=== PATIENT | male | born 1965 | race Caucasian/White ===

== ENCOUNTER → 2018-02-02 14:17 | Outpatient (CLI) | payer SELFPAY ==
[2018-02-02 15:47] LABS: AST(SGOT) 20 U/L (15-37); Alanine Aminotransfer ALT/SGPT 51 U/L (16-61); Albumin, Serum 3.8 g/dL (3.2-5.0); Alkaline Phosphatase 101 U/L (45-117); Bilirubin, Direct 0.11 mg/dL (0.00-0.30); EST Glomerular Filtration Rate 52 mL/min (>60); Est Glom Filt Rate - Afr Amer 63 mL/min (>60); Globulin 4.1 g/dL (2.2-4.2); Protein, Total 7.9 g/dL (6.4-8.2)
[2018-02-02 15:49] LABS: Vitamin D,25 Hydroxy 19.3 ng/mL (29.95-100.01)
[2018-02-02 16:36] LABS: PTHIN 58.7 pg/mL (18.4-80.1)
[2018-02-02 16:38] LABS: Erythrocyte Sedimentation Rate 34 mm/hr (0-20)
[2018-02-05 16:50] LABS: CCP IgG Antibodies 5 units (0-19)
== END ==
PROVIDERS: Family Provider Family Medicine; PCP Family Medicine
DX: M35.3 Polymyalgia rheumatica (principal); R70.0 Elevated erythrocyte sedimentation rate; R79.82 Elevated C-reactive protein (CRP); M85.80 Other specified disorders of bone density and structure, unspecified site; Z79.899 Other long term (current) drug therapy
CPT/HCPCS: 36415; 80076; 82306; 82310; 82565; 83970; 85652; 86140; 86200

== ENCOUNTER → 2018-02-16 12:13 | Outpatient (CLI) | payer SELFPAY ==
[2018-02-16 14:25] LABS: BUN 27 mg/dL (7-18); Creatinine, Serum 1.59 mg/dL (0.70-1.30); EST Glomerular Filtration Rate 48 mL/min (>60); Est Glom Filt Rate - Afr Amer 59 mL/min (>60)
[2018-02-16 14:31] LABS: PTHIN 41.6 pg/mL (18.4-80.1)
== END ==
PROVIDERS: Family Provider Family Medicine; PCP Family Medicine
DX: R94.4 Abnormal results of kidney function studies (principal); M85.80 Other specified disorders of bone density and structure, unspecified site
CPT/HCPCS: 36415; 82310; 82565; 83970; 84520

== ENCOUNTER 2018-02-23 16:08 | Inpatient (IN) | payer SELFPAY ==
[2018-02-23] VITALS (11 sets, daily range): BP systolic 114–155; BP diastolic 60–97; PULSE 63–87; RESP 16–21; TEMP 36.4–37.1; O2SAT 96–100; BMI 29.3; BMI 29.6
[2018-02-23] MEDS: 0.9% Normal Saline 1,000 ML 1000 ML IV (17:05)
[2018-02-23 17:15] LABS: Bacteria 0 SEEN /hpf (None Seen); Mucous, Urine 0 SEEN /hpf (<or=2+); Red Blood Cells-Urine 0 SEEN /hpf (0-5); Squamous Epithelial Cells - UA 0 SEEN /hpf (0-5); White Blood Cells 0 SEEN /hpf (0-5)
[2018-02-23 17:21] LABS: Absolute Neutrophil Count 4.7 X10^3/uL (2.0-7.7); Basophil# 0.02 X10^3/uL; Basophil% 0.3 % (0-1); Eosinophil# 0.03 X10^3/uL; Eosinophils% 0.5 % (0-5); Hematocrit 42.1 % (40-54); Hemoglobin 14.9 g/dl (13.0-16.5); Lymphocyte % 22.7 % (19-41); Mean Corp Hgb Conc 35.4 g/gl (32-36); Mean Corpuscular Hgb 27.2 pg (27.0-32.0); Monocyte# 0.32 X10^3/uL; Monocyte% 4.8 % (0-10); Neutrophil # 4.72 X10^3/uL (2.7-7.7); Neutrophil % 71.4 % (47-70); Platelet Count 283 K/mm3 (150-450); RBC Distribution Width CV 13.7 % (11.6-14.6); RBC Distribution Width SD 38.5 fl (35.1-43.9); Red Blood Count 5.47 M/mm3 (4.6-6.2); White Blood Count 6.6 K/mm3 (4.4-11.0)
[2018-02-23 17:24] LABS: POSITIVE COUNT NO; POSITIVE DIFFERENTIAL NO; POSITIVE MORPHOLOGY NO
[2018-02-23 17:33] LABS: Color, Urine Yellow (Yellow); Glucose, Dipstick 1000 mg/dl (Normal); Leukocyte Esterase-Dipstick Negative /ul (Negative); Nitrite-Dipstick Negative (Negative); Occult Blood-Urine 25 /ul (Negative); Protein-Dipstick 15 mg/dl (Negative); Specific Gravity, Urine 1.025 (1.002-1.030); Urine Bilirubin Dipstick Negative (Negative); Urine Clarity Clear (Clear); Urine Urobilinogen Normal (Normal)
[2018-02-23 17:34] LABS: Anion Gap 17 (5-15); BUN 16 mg/dL (7-18); Calcium,Total 8.5 mg/dL (8.5-10.1); Chloride 97 mmol/L (98-107); Creatinine, Serum 0.84 mg/dL (0.70-1.30); EST Glomerular Filtration Rate 101 mL/min (>60); Est Glom Filt Rate - Afr Amer 122 mL/min (>60); Estimated Creatinine Clearance 93.99 ml/min; Glucose 339 mg/dL (74-106); Potassium 3.7 mmol/L (3.5-5.1); Sodium Level 130 mmol/L (136-145)
--- NOTE | 2018-02-23 17:34 | ED.VISSUMM ---
- ER Visit Summary Date of Service: 02/23/18 Chief Complaint: Elevated blood sugar History of Present Illness: The patient is a 52 M presenting with elevated blood sugar. Patient states that he has been testing his blood sugar with his friend's machine over the past several days. He states is been up to 500. He complains of polyuria and polydipsia. He states he has been losing weight over the past 6 weeks he has lost 26 pounds. He saw his primary care physician today who ordered outpatient lab work. He was then later called and advised to come to the ED for concern of diabetes. He has a history of GERD and polymyalgia rheumatica. He is on prednisone chronically. He has had nausea with no vomiting. He denies other complaints. Physical Examination: Vitals are stable. Patient is afebrile. Alert no acute distress. HEENT exam is unremarkable. Neck is supple. Lungs are clear and equal bilaterally. Heart is regular rate and rhythm. Abdomen is soft nontender nondistended. Extremities are unremarkable. Skin is warm and dry. No focal neurologic deficit. Remainder of exam is unremarkable. Emergency Department Course and Treatment: Patient is given IV fluids. EKG is sinus rate is 79. CBC unremarkable. Chemistries show sodium 130, CO2 16, anion gap 17, glucose 339. Urinalysis shows ketones and glucose. Serum ketones are small. Patient was started on insulin drip. Discussed with Dr. Raymond for admission. Disposition: Admission Impression: Diabetic ketoacidosis This note was generated with [employer] dictation software. It may contain incorrect words, spelling, and punctuation that were not noted in review of the chart prior to signing ED Disposition - Plan for ED Patient: Chief Complaint: Hyperglycemia Referrals: Hector Luciano MD [Primary Care Provider] -
--- NOTE | 2018-02-23 17:35 | NURSING ---
PER LAB URINE KETONES 150.
[2018-02-23 17:36] LABS: Ketone-Dipstick 150 mg/dl (Negative)
--- NOTE | 2018-02-23 18:45 | PCM.HP.STD ---
Problem List (1) DKA (diabetic ketoacidoses) Status: Acute Qualifiers: Diabetes mellitus type: type 2 Diabetes mellitus complication detail: without coma Qualified Code(s): E11.10 - Type 2 diabetes mellitus with ketoacidosis without coma (2) GERD (gastroesophageal reflux disease) Status: Acute Qualifiers: Esophagitis presence: esophagitis presence not specified Qualified Code(s): K21.9 - Gastro-esophageal reflux disease without esophagitis (3) PMR (polymyalgia rheumatica) Status: Chronic History of Present Illness Date of Admission: 02/23/18 Chief Complaint: Generalised weakness, dizziness, blurred vision, polydipsia, polyuria - >3 weeks The patient is a 52 year old M with a recent diagnosis of polymyalgia rheumatica, started on prednisone, who comes in with complaints of fatigue, polydipsia, polyuria, blurred vision as well as dizziness ongoing for more than 3 weeks. Patient had noticed his symptoms getting worse 3 days ago, I tried calling to the primary care office but they were close. He brought his friend's glucometer and check his blood sugar and was reportedly 499. He tried to control his sugars diet and repeat checking has shown that sugars had gone down to about 200s. He called in this morning to see his primary care doctor and blood sugar was reportedly more than 320, his HbA1c was also more than 15. He was asked to come to the ED. In the ED, his temperature 97.6, blood pressure was 155/95, heart rate 77, SPO2 is 96% on room air. His admitting blood work was remarkable for sodium of 130, chloride 97, potassium 3.7, bicarbonate 16, anion gap of 17, BUN 16, creatinine 0.84. His UA showed clear urine, glucose 1000, with ketones. Past Medical History Past Medical History (Chronic Problems): Chronic Problems Hypertension (Chronic) PMR (polymyalgia rheumatica) (Chronic) Allergies No Known Allergies Allergy (Verified 02/23/18 16:11) Home Medications: Ambulatory Orders Medication Instructions Recorded Cholecalciferol (Vitamin D3) 50,000 unit PO ANDRADE 02/23/18 [Vitamin D] Omeprazole Magnesium [Prilosec Otc] 10 mg PO DAILY 02/23/18 Paroxetine HCl [Paxil] 30 mg PO DAILY 02/23/18 Prednisone 10 mg PO DAILY 02/23/18 Surgical History: - - knee surgery years ago Psychiatric History: No pertinent psych hx Lives: Spouse/ Significant Other Smoking Status: Never smoker Tobacco Use: Non-smoker Alcohol: None Drugs: None - *Family History Paternal History Items: No pertinent history Maternal History Items: No pertinent history Review of Systems Constitutional: Denies: Anorexia, Chills, Fever, Malaise, Weakness, Weight Change Eyes: Denies: Blurred vision, Cataracts, Conjunctivae Inflammation, Pain, Redness, Vision Change HEENT: Denies: Difficulty Hearing, Difficulty Swallowing, Head Aches, Hearing Changes, Sinus Congestion, Sinus Drainage Cardiovascular: Denies: Chest Pain, Claudication, Orthopnea, Palpitations, Paroxysmal Noc. Dyspnea Respiratory: Denies: Cough, Shortness of Breath, Shortness of breath at rest, Shortness of breath upon exertion, Sputum production Gastrointestinal: Denies: Abdominal Pain, Constipation, Hematemesis, Hematochezia, Nausea, Vomiting Genitourinary: Denies: Dysuria, Frequency, Incontinence Musculoskeletal: Denies: Joint Pain, Joint stiffness, Joint swelling, Joint Tenderness Skin: Denies: Dryness, Pruritis, Rash, Wounds Neurological: Denies: Difficulty swallowing, Focal weakness, Numbness, Tingling Psychiatric: Denies: Anxiety, Depression, Homicidal Ideations, Suicidal Ideations Hematologic/ Lymphatic: Denies: Easy Bruising, Easy Bleeding VTE Information - Inpt Only VTE Present on Admission: No VTE Pharm Prophylaxis ordered?: Yes Patient Problems: Active and Suspected Problems DKA (diabetic ketoacidoses) (Acute) GERD (gastroesophageal reflux disease) (Acute) - Physical Exam General: Alert, Oriented x3, Cooperative, No apparent distress HEENT: Atraumatic, PERRLA, EOMI, Normocephalic Oral: Moist Mucosa Neck: Supple, No JVD, Negative Carotid Bruits Lungs: Clear to auscultation, Normal air movement Cardiovascular: Regular rate, Regular Rhythm, Normal S1, Normal S2, No murmurs Abdomen: Bowel Sounds Present, Soft, Non Tender Extremities: No edema Skin: No rashes, No breakdown Musculoskeletal: No Tenderness to Palpation of Joints or Extremities Lymphatic: No Cervical, Supraclavicular, or Inguinal Adenopathy Neurological: Cranial nerves II-XII grossly intact Psych/Mental Status: Normal Affect, Appropriate Vital Signs Temp Pulse Resp BP Pulse Ox 97.6 F L 67 18 137/88 H 99 02/23/18 16:09 02/23/18 18:24 02/23/18 18:24 02/23/18 18:24 02/23/18 18:24 Oxygen Delivery Method Room Air Weight: 85 kg Body Mass Index (BMI) 29.3 Laboratory Tests Past 24 Hrs 02/23/18 02/23/18 02/23/18 16:54 16:54 16:54 WBC 6.6 RBC 5.47 Hgb 14.9 Hct 42.1 MCV 77.0 L MCH 27.2 MCHC 35.4 RDW 13.7 RDW Differential 38.5 Plt Count 283 MPV 9.0 Immature Gran % (Auto) 0.300 Neut % (Auto) 71.4 H Lymph % (Auto) 22.7 [place] % (Auto) 4.8 Eos % (Auto) 0.5 Baso % (Auto) 0.3 Absolute Neuts (auto) 4.7 Absolute Lymphs (auto) 1.50 Total Counted Not Reportable Sodium 130 L Potassium 3.7 Chloride 97 L Carbon Dioxide 16.0 L Anion Gap 17 H BUN 16 Creatinine 0.84 Estim Creat Clear Calc 93.99 Est GFR (MDRD) Af Amer 122 Est GFR (MDRD) Non-Af 101 BUN/Creatinine Ratio 19.0 Glucose 339 H Calcium 8.5 Urine Color Urine Clarity Urine pH Ur Specific [place] Urine Protein Urine Glucose (UA) Urine Ketones Urine Occult Blood Urine Nitrite Urine Bilirubin Urine Urobilinogen Ur Leukocyte Esterase Urine RBC Urine WBC Ur Squamous Epith Cells Urine Bacteria Urine Mucus Acetone Level SMALL H 02/23/18 17:08 WBC RBC Hgb Hct MCV MCH MCHC RDW RDW Differential Plt Count MPV Immature Gran % (Auto) Neut % (Auto) Lymph % (Auto) [place] % (Auto) Eos % (Auto) Baso % (Auto) Absolute Neuts (auto) Absolute Lymphs (auto) Total Counted Sodium Potassium Chloride Carbon Dioxide Anion Gap BUN Creatinine Estim Creat Clear Calc Est GFR (MDRD) Af Amer Est GFR (MDRD) Non-Af BUN/Creatinine Ratio Glucose Calcium Urine Color Yellow Urine Clarity Clear Urine pH 5.0 Ur Specific [place] 1.025 Urine Protein 15 H Urine Glucose (UA) 1000 H Urine Ketones 150 H Urine Occult Blood 25 H Urine Nitrite Negative Urine Bilirubin Negative Urine Urobilinogen Normal Ur Leukocyte Esterase Negative Urine RBC 0 SEEN Urine WBC 0 SEEN Ur Squamous Epith Cells 0 SEEN Urine Bacteria 0 SEEN Urine Mucus 0 SEEN Acetone Level Assessment/Plan All Active Problems DKA (diabetic ketoacidoses) (Acute) GERD (gastroesophageal reflux disease) (Acute) 52 year old M with a recent diagnosis of polymyalgia rheumatica, started on prednisone, who comes in with complaints of fatigue, polydipsia, polyuria, blurred vision as well as dizziness ongoing for more than 3 weeks. 1. Acute DKA, newly diagnosed diabetic, HbA1c reportedly 15 and the outside facility, patient is on steroid Plan: Admit to the ICU, managed on insulin drip per protocol, monitor for electrolyte imbalances, IV fluids 2. Newly diagnosed DM, will consult dietitian, will check HbA1c, patient will most likely need insulin on discharge 3. Polymyalgia rheumatica, pain is fairly controlled, will continue steroids. 4. GERD, on PPI 5. Anxiety/depression, on Paxil 6. DVT PPx- Heparin SC Code Visit Inpatient E&M: 26590 Init Hosp L3
[2018-02-23] MEDS: Dext 5%-0.45% NS 1,000 ML 150 ML IV (20:53)
[2018-02-23 21:10] LABS: Bedside Glucose 246 mg/dL (70-110)
[2018-02-23 21:21] LABS: Hemoglobin A1c 13.6 % (4.2-6.3)
[2018-02-23 21:32] LABS: Anion Gap 14 (5-15); BUN 13 mg/dL (7-18); BUN/Creat Ratio 16.9 RATIO (10-20); Chloride 100 mmol/L (98-107); Creatinine, Serum 0.77 mg/dL (0.70-1.30); EST Glomerular Filtration Rate 112 mL/min (>60); Est Glom Filt Rate - Afr Amer 135 mL/min (>60); Estimated Creatinine Clearance 102.54 ml/min; Glucose 254 mg/dL (74-106); Potassium 3.8 mmol/L (3.5-5.1); Sodium Level 132 mmol/L (136-145)
[2018-02-23] MEDS: Heparin Injection (Vial) 5,000 UNIT/ML VIAL 5000 UNIT SC (21:43)
[2018-02-23 21:51] LABS: Bedside Glucose 266 mg/dL (70-110)
[2018-02-23 23:06] LABS: Bedside Glucose 248 mg/dL (70-110)
[2018-02-24] VITALS (14 sets, daily range): BP systolic 107–139; BP diastolic 59–86; PULSE 54–76; RESP 12–22; TEMP 36.2–37; O2SAT 90–100
[2018-02-24 00:10] LABS: Bedside Glucose 237 mg/dL (70-110)
[2018-02-24 00:59] LABS: Anion Gap 11 (5-15); BUN 10 mg/dL (7-18); BUN/Creat Ratio 14.6 RATIO (10-20); Calcium,Total 7.9 mg/dL (8.5-10.1); Chloride 105 mmol/L (98-107); Creatinine, Serum 0.68 mg/dL (0.70-1.30); EST Glomerular Filtration Rate 128 mL/min (>60); Est Glom Filt Rate - Afr Amer 155 mL/min (>60); Estimated Creatinine Clearance 116.11 ml/min; Glucose 214 mg/dL (74-106); Potassium 3.2 mmol/L (3.5-5.1); Sodium Level 135 mmol/L (136-145)
[2018-02-24 02:06] LABS: Bedside Glucose 179 mg/dL (70-110)
[2018-02-24] MEDS: Dext 5%-0.45% NS 1,000 ML 150 ML IV (03:05)
[2018-02-24 03:11] LABS: Bedside Glucose 159 mg/dL (70-110)
[2018-02-24 04:21] LABS: Bedside Glucose 154 mg/dL (70-110)
[2018-02-24 04:38] LABS: Anion Gap 11 (5-15); BUN 9 mg/dL (7-18); BUN/Creat Ratio 12.4 RATIO (10-20); Calcium,Total 8.2 mg/dL (8.5-10.1); Chloride 108 mmol/L (98-107); Creatinine, Serum 0.73 mg/dL (0.70-1.30); EST Glomerular Filtration Rate 120 mL/min (>60); Est Glom Filt Rate - Afr Amer 145 mL/min (>60); Estimated Creatinine Clearance 108.15 ml/min; Glucose 145 mg/dL (74-106); Magnesium 2.1 mg/dL (1.6-2.6); Potassium 3.2 mmol/L (3.5-5.1); Sodium Level 141 mmol/L (136-145)
[2018-02-24 04:44] LABS: Absolute Lymphocyte Count 2.28 X10^3/ul (0.83-4.51); Absolute Neutrophil Count 2.1 X10^3/uL (2.0-7.7); Basophil# 0.03 X10^3/uL; Basophil% 0.6 % (0-1); Eosinophil# 0.07 X10^3/uL; Eosinophils% 1.4 % (0-5); Hematocrit 37.8 % (40-54); Hemoglobin 13.5 g/dl (13.0-16.5); Lymphocyte # 2.28 X10^3/ul (4.0); Mean Corp Hgb Conc 35.7 g/gl (32-36); Mean Corpuscular Hgb 27.1 pg (27.0-32.0); Mean Corpuscular Volume 75.9 fL (80-94); Mean Platelet Vol. 8.5 fl (6.2-12.0); Monocyte# 0.34 X10^3/uL; Neutrophil # 2.12 X10^3/uL (2.7-7.7); Neutrophil % 43.8 % (47-70); Platelet Count 223 K/mm3 (150-450); RBC Distribution Width CV 13.9 % (11.6-14.6); Red Blood Count 4.98 M/mm3 (4.6-6.2); White Blood Count 4.9 K/mm3 (4.4-11.0)
[2018-02-24 04:49] LABS: POSITIVE COUNT NO; POSITIVE DIFFERENTIAL NO; POSITIVE MORPHOLOGY NO
[2018-02-24] MEDS: Heparin Injection (Vial) 5,000 UNIT/ML VIAL 5000 UNIT SC ×3 (05:04→21:16)
[2018-02-24 06:11] LABS: Bedside Glucose 146 mg/dL (70-110)
--- NOTE | 2018-02-24 07:44 | PCM.PN.HOSP ---
Patient Problems: Active and Suspected Problems DKA (diabetic ketoacidoses) (Acute) GERD (gastroesophageal reflux disease) (Acute) Subjective: And was seen and examined. Complains of feeling fatigued. Denies any dizziness or shortness of breath or chest pain. Anion gap has been closed ?2. Remains on insulin drip. Vitals/I&O's: Vital Signs Temp Pulse Resp BP Pulse Ox 97.2 F L 57 L 13 139/86 H 100 02/24/18 04:00 02/24/18 07:00 02/24/18 07:00 02/24/18 07:00 02/24/18 07:00 Oxygen Delivery Method Room Air Weight: 87.3 kg Body Mass Index (BMI) 29.6 Finger Stick Blood Glucose 178 Intake and Output for Last 24 Hours 02/22/18 02/23/18 02/24/18 23:59 23:59 23:59 Intake Total 909.8 / 909.8 1074.2 / 1074.2 Output Total 1225 / 1225 700 / 700 Balance -315.2 / -315.2 374.2 / 374.2 General: Alert, Oriented x3, Cooperative, No apparent distress HEENT: Atraumatic, PERRLA, EOMI, Normocephalic Oral: Moist Mucosa Neck: Supple Lungs: Clear to auscultation, Normal air movement Cardiovascular: Regular rate, Regular Rhythm, Normal S1, Normal S2, No murmurs Abdomen: Bowel Sounds Present, Soft, Non Tender Extremities: No edema Skin: No rashes, No breakdown Musculoskeletal: No Tenderness to Palpation of Joints or Extremities Lymphatic: No Cervical, Supraclavicular, or Inguinal Adenopathy Neurological: Cranial nerves II-XII grossly intact, Neuro grossly intact Psych/Mental Status: Normal Affect, Appropriate Laboratory Results 02/23/18 20:24: POC Glucose 246 H 02/23/18 20:40: Hemoglobin A1c 13.6 H 02/23/18 20:40: Sodium 132 L, Potassium 3.8, Chloride 100, Carbon Dioxide 18.0 L, Anion Gap 14, BUN 13, Creatinine 0.77, Estim Creat Clear Calc 102.54, Est GFR (MDRD) Af Amer 135, Est GFR (MDRD) Non-Af 112, BUN/Creatinine Ratio 16.9, Glucose 254 H, Calcium 8.0 L 02/23/18 21:41: POC Glucose 266 H 02/23/18 23:00: POC Glucose 248 H 02/23/18 23:57: POC Glucose 237 H 02/24/18 00:30: Sodium 135 L, Potassium 3.2 L, Chloride 105, Carbon Dioxide 19.0 L, Anion Gap 11, BUN 10, Creatinine 0.68 L, Estim Creat Clear Calc 116.11, Est GFR (MDRD) Af Amer 155, Est GFR (MDRD) Non-Af 128, BUN/Creatinine Ratio 14.6, Glucose 214 H, Calcium 7.9 L 02/24/18 01:59: POC Glucose 179 H 02/24/18 03:02: POC Glucose 159 H 02/24/18 04:12: POC Glucose 154 H 02/24/18 04:20: Sodium 141, Potassium 3.2 L, Chloride 108 H, Carbon Dioxide 22.0, Anion Gap 11, BUN 9, Creatinine 0.73, Estim Creat Clear Calc 108.15, Est GFR (MDRD) Af Amer 145, Est GFR (MDRD) Non-Af 120, BUN/Creatinine Ratio 12.4, Glucose 145 H, Calcium 8.2 L, Magnesium 2.1 02/24/18 04:20: WBC 4.9, RBC 4.98, Hgb 13.5, Hct 37.8 L, MCV 75.9 L, MCH 27.1, MCHC 35.7, RDW 13.9, RDW Differential 38.0, Plt Count 223, MPV 8.5, Immature Gran % (Auto) 0.200, Neut % (Auto) 43.8 L, Lymph % (Auto) 47.0 H, [place] % (Auto) 7.0, Eos % (Auto) 1.4, Baso % (Auto) 0.6, Absolute Neuts (auto) 2.1, Absolute Lymphs (auto) 2.28, Total Counted Not Reportable 02/24/18 06:02: POC Glucose 146 H Current Medications Dextrose (D50w Syringe) 0 gm IV X1 PRN; Protocol PRN Reason: HYPOGLYCEMIA Ergocalciferol (Vitamin D) 50,000 unit PO Mir [facility] Heparin Sodium (Porcine) (Heparin Na) 5,000 unit SC Q8 [facility] Last Admin: 02/24/18 05:04 Dose: 5,000 unit Dextrose/Sodium Chloride () 1,000 mls @ 150 mls/hr IV .[id number] [facility] Last Admin: 02/24/18 03:05 Dose: 150 mls/hr Insulin Human Lispro 100 unit/ (Sodium Chloride) 100 mls @ 8.58 mls/hr IV .[id number] [facility]; 0.1 UNITS/KG/HR PRN Reason: Protocol Last Admin: 02/24/18 03:06 Dose: Not Given Sodium Chloride () 250 mls @ 15 mls/hr IV .[id number] PRN PRN Reason: SALINE FLUSH Potassium Chloride (Kcl 10meq/100ml) 10 meq in 100 mls @ 100 mls/hr IV BOLUS Q1H [facility] Stop: 02/24/18 08:44 Last Admin: 02/24/18 06:23 Dose: 100 mls/hr Nutritional Formula (Lactose Free) (Glucerna Shake) 120 ml PO 4X/DAY [facility] Pantoprazole Sodium (Protonix) 20 mg PO DAILY [facility] Paroxetine HCl (Paxil) 30 mg PO DAILY [facility] Prednisone () 10 mg PO DAILYCM [facility] Sodium Chloride () 5 - 30 ml IV UD PRN PRN Reason: SALINE FLUSH Medical Necessity - Tobacco Use Smoking Status: Never smoker Tobacco Use: Non-smoker Assessment/Plan All Active Problems DKA (diabetic ketoacidoses) (Acute) GERD (gastroesophageal reflux disease) (Acute) 52 year old M with a recent diagnosis of polymyalgia rheumatica, started on prednisone, who comes in with complaints of fatigue, polydipsia, polyuria, blurred vision as well as dizziness ongoing for more than 3 weeks. 1. Acute DKA, newly diagnosed diabetic, HbA1c 13.6, Started on insulin drip, anion gap is closed, will transition to Lantus 10 units daily as well as insulin sliding scale, sled maker referral 2. Newly diagnosed DM, HbA1c 13.6, will be discharged on insulin. 3. Hypokalemia, replaced, recheck BMP in a.m. 4. Polymyalgia rheumatica, pain is fairly controlled, on steroids. 5. GERD, on PPI 6. Anxiety/depression, on Paxil 7. DVT PPx- Heparin SC Code Visit Inpatient E&M: 06395 Subs Hosp L2
[2018-02-24 08:06] LABS: Bedside Glucose 115 mg/dL (70-110)
[2018-02-24] MEDS: Glucerna Shake 120 ML LIQUID PO ×4 (09:03→21:15)
[2018-02-24] MEDS: predniSONE 10 MG Tablet PO (09:04)
[2018-02-24] MEDS: PARoxetine 10 MG Tablet 30 MG PO (09:04)
[2018-02-24] MEDS: Pantoprazole Sodium 20 MG Tablet PO (09:05)
--- NOTE | 2018-02-24 09:43 | CASEMGMT ---
SW spoke with Patient [employer] and patient is over income for any assistance. He is also over income for hospital indigent medication program. RN CM spoke with patient and he feels he will be fine paying for medications. Keli HOLMAN MSW
--- NOTE | 2018-02-24 10:08 | NURSING ---
report called to med-surg for transfer to room 213 ,transferred per chair with belongings
[2018-02-24 11:34] LABS: Anion Gap 8 (5-15); BUN 8 mg/dL (7-18); BUN/Creat Ratio 10.1 RATIO (10-20); Calcium,Total 8.1 mg/dL (8.5-10.1); Chloride 103 mmol/L (98-107); Creatinine, Serum 0.79 mg/dL (0.70-1.30); EST Glomerular Filtration Rate 108 mL/min (>60); Est Glom Filt Rate - Afr Amer 131 mL/min (>60); Estimated Creatinine Clearance 99.94 ml/min; Glucose 383 mg/dL (74-106); Potassium 3.9 mmol/L (3.5-5.1); Sodium Level 135 mmol/L (136-145)
[2018-02-24 11:41] LABS: Bedside Glucose 385 mg/dL (70-110)
[2018-02-24] MEDS: Insulin Lispro 100 UNIT/ML INSULN.PEN SQ ×3 (11:44→21:16)
[2018-02-24 16:06] LABS: Bedside Glucose 359 mg/dL (70-110)
[2018-02-24 21:41] LABS: Bedside Glucose 361 mg/dL (70-110)
[2018-02-25 01:45] VITALS: BP 128/81; PULSE 62; RESP 16; TEMP 36.4; O2SAT 98
[2018-02-25] MEDS: Heparin Injection (Vial) 5,000 UNIT/ML VIAL 5000 UNIT SC (06:01)
[2018-02-25 07:05] LABS: Anion Gap 14 (5-15); BUN 13 mg/dL (7-18); BUN/Creat Ratio 17.5 RATIO (10-20); Chloride 99 mmol/L (98-107); Creatinine, Serum 0.74 mg/dL (0.70-1.30); EST Glomerular Filtration Rate 117 mL/min (>60); Est Glom Filt Rate - Afr Amer 141 mL/min (>60); Estimated Creatinine Clearance 106.69 ml/min; Glucose 296 mg/dL (74-106); Potassium 3.8 mmol/L (3.5-5.1); Sodium Level 137 mmol/L (136-145)
[2018-02-25 07:35] VITALS: BP 118/79; PULSE 62; RESP 16; TEMP 36.4; O2SAT 96
[2018-02-25] MEDS: Insulin Lispro 100 UNIT/ML INSULN.PEN SQ (07:40)
[2018-02-25] MEDS: predniSONE 10 MG Tablet PO (07:41)
[2018-02-25 07:50] LABS: Bedside Glucose 298 mg/dL (70-110)
--- NOTE | 2018-02-25 08:41 | PCM.PN.HOSP ---
Subjective: Patient was seen and examined. Denied any new complaints. Sugars remained fairly elevated. Eager to be discharged. Denies any fever or chills. Seen by the dietitian, education given. Vitals/I&O's: Vital Signs Temp Pulse Resp BP Pulse Ox 97.6 F L 62 16 118/79 96 02/25/18 07:35 02/25/18 07:35 02/25/18 07:35 02/25/18 07:35 02/25/18 07:35 Oxygen Delivery Method Room Air Weight: 87.3 kg Body Mass Index (BMI) 29.6 Finger Stick Blood Glucose 115 Intake and Output for Last 24 Hours 02/23/18 02/24/18 02/25/18 23:59 23:59 23:59 Intake Total 909.8 / 909.8 1074.2 / 1074.2 Output Total 1225 / 1225 700 / 700 Balance -315.2 / -315.2 374.2 / 374.2 General: Alert, Oriented x3, Cooperative, No apparent distress HEENT: Atraumatic, PERRLA, EOMI, Normocephalic Oral: Moist Mucosa Neck: Supple Lungs: Clear to auscultation, Normal air movement Cardiovascular: Regular rate, Regular Rhythm, Normal S1, Normal S2, No murmurs Abdomen: Bowel Sounds Present, Soft, Non Tender, Non-Distended, No Hepato-splenomegaly Extremities: No edema Skin: No rashes, No breakdown Musculoskeletal: No Tenderness to Palpation of Joints or Extremities Lymphatic: No Cervical, Supraclavicular, or Inguinal Adenopathy Neurological: Cranial nerves II-XII grossly intact, Neuro grossly intact Psych/Mental Status: Normal Affect, Appropriate Laboratory Results 02/24/18 11:08: Sodium 135 L, Potassium 3.9, Chloride 103, Carbon Dioxide 24.0, Anion Gap 8, BUN 8, Creatinine 0.79, Estim Creat Clear Calc 99.94, Est GFR (MDRD) Af Amer 131, Est GFR (MDRD) Non-Af 108, BUN/Creatinine Ratio 10.1, Glucose 383 H, Calcium 8.1 L 02/24/18 11:35: POC Glucose 385 H 02/24/18 15:44: POC Glucose 359 H 02/24/18 21:14: POC Glucose 361 H 02/25/18 06:25: Sodium 137, Potassium 3.8, Chloride 99, Carbon Dioxide 24.0, Anion Gap 14, BUN 13, Creatinine 0.74, Estim Creat Clear Calc 106.69, Est GFR (MDRD) Af Amer 141, Est GFR (MDRD) Non-Af 117, BUN/Creatinine Ratio 17.5, Glucose 296 H, Calcium 9.0 02/25/18 07:39: POC Glucose 298 H Current Medications Dextrose (D50w Syringe) 0 gm IV X1 PRN; Protocol PRN Reason: HYPOGLYCEMIA Ergocalciferol (Vitamin D) 50,000 unit PO Mir [facility] Glucagon () 1 mg IM .X1 PRN PRN Reason: Hypoglycemia Heparin Sodium (Porcine) (Heparin Na) 5,000 unit SC Q8 [facility] Last Admin: 02/25/18 06:01 Dose: 5,000 unit Sodium Chloride () 250 mls @ 15 mls/hr IV .[id number] PRN PRN Reason: SALINE FLUSH Insulin Glargine (Lantus (Bkc)) 15 units SC DAILY [facility] Insulin Human Lispro (Humalog Kwikpen (Bkc)) 0 unit SQ ACHS [facility] PRN Reason: Protocol Last Admin: 02/25/18 07:40 Dose: 6 u Nutritional Formula (Lactose Free) (Glucerna Shake) 120 ml PO 4X/DAY [facility] Last Admin: 02/24/18 21:15 Dose: 120 ml Pantoprazole Sodium (Protonix) 20 mg PO DAILY [facility] Last Admin: 02/24/18 09:05 Dose: 20 mg Paroxetine HCl (Paxil) 30 mg PO DAILY [facility] Last Admin: 02/24/18 09:04 Dose: 30 mg [facility] () [facility] Last Admin: 02/25/18 07:41 Dose: 10 mg Sodium Chloride () 5 - 30 ml IV UD PRN PRN Reason: SALINE FLUSH Medical Necessity - Tobacco Use Smoking Status: Never smoker Tobacco Use: Non-smoker Assessment/Plan All Active Problems DKA (diabetic ketoacidoses) (Acute) GERD (gastroesophageal reflux disease) (Acute) 52 year old M with a recent diagnosis of polymyalgia rheumatica, started on prednisone, who comes in with complaints of fatigue, polydipsia, polyuria, blurred vision as well as dizziness ongoing for more than 3 weeks. 1. Acute DKA, newly diagnosed diabetic, HbA1c 13.6, resolved 2. Newly diagnosed DM, HbA1c 13.6, sugars remained fairly uncontrolled will be discharged on insulin. 3. Hypokalemia, resolved 4. Polymyalgia rheumatica, pain is fairly controlled, on steroids. 5. GERD, on PPI 6. Anxiety/depression, on Paxil 7. DVT PPx- Heparin SC
--- NOTE | 2018-02-25 09:13 | PCM.DC ---
- Discharge Diagnoses Current Active Problems: Current Active and Chronic Problems DKA (diabetic ketoacidoses) (Acute) Hypertension (Chronic) GERD (gastroesophageal reflux disease) (Acute) PMR (polymyalgia rheumatica) (Chronic) Reason(s) for Visit for Discharge Instructions: Acute DKA, newly diagnosed DM You will use the following diet at home:: Calorie/Carbohydrate Controlled (specify 1200, 1400, etc), Cardiac Your food should be the consistency of: Regular Your liquids should be the consistency of: Regular/Thin Discharge Activity: Return to Normal Activity Additional Instructions: You are being discharged with insulin. You will need to check your blood sugar 4 times a day -Before meals and at night. Watch out for signs of low blood sugar such as sweatiness, dizziness, feeling flushed. Blood sugar below 70 or close to 70's is hypoglycemia. When that happens, immediately take something sugary. Keep a log of your blood sugars and let your PCP know about your reading so that your insulin may be adjusted. Keep your self hydrated all the time. Continue to remain active. Allergies/Adverse Reactions: Allergies No Known Allergies Allergy (Verified 02/23/18 16:11) Medications to take at Discharge Cholecalciferol (Vitamin D3) [Vitamin D3] 50,000 unit PO ANDRADE 02/23/18 Omeprazole Magnesium [Prilosec Otc] 10 mg PO DAILY 02/23/18 Paroxetine HCl [Paxil] 30 mg PO DAILY 02/23/18 Prednisone 10 mg PO DAILY 02/23/18 Insulin Glargine [Lantus SoloStar Pen] 15 units SC DAILY #1 pen 02/25/18 Insulin Lispro [Humalog KwikPen] See Protocol SQ ACHS #1 insuln.pen 02/25/18 The following prescriptions were given: Insulin Glargine [Lantus SoloStar Pen] 15 units SC DAILY #1 pen Insulin Lispro [Humalog KwikPen] See Protocol SQ ACHS #1 insuln.pen Primary Care Physician: Hector Luciano MD [Primary Care Provider] - Please follow up with your Primary Care Physician in: within 1-2 weeks Test Results: Test results from this visit will be discussed in further detail at your follow-up appointment, if applicable. Proposed Discharge Date: 02/25/18
--- NOTE | 2018-02-25 09:25 | PCM.DC.SUM ---
Discharge Date and Diagnosis Date of Admission: 02/23/18 Date of Discharge: 02/25/18 - Primary Discharge Diagnosis Active and Suspected Problems DKA (diabetic ketoacidoses) (Acute) Newly Diagnosed Type 2 DM Hypokalemia - Secondary Discharge Diagnosis Chronic Problems Hypertension (Chronic) PMR (polymyalgia rheumatica) (Chronic) Hospital Course and Treatment None Operations: None Procedures: None Summary of Care Provided: The patient is a 52 year old M with recent diagnosis of polymyalgia rheumatica, on prednisone, admitted with complaints of fatigue, polydipsia, polyuria, blurred vision as well as dizziness ongoing for more than 3 weeks. His blood sugar has been up to about 500, complains of weight loss was lost more than 26 pounds. He presented to his primary care doctor who ordered outpatient blood and reportedly had HbA1c of 15, asked to come to the ED for management of DKA. In the ED, patient was found to have a sodium of 130, bicarbonate of 16, anion gap of 70, blood glucose of 33. Urinalysis shows ketones and glucose with small serum ketones. Patient was started on insulin drip, admitted to the ICU, monitored overnight with resolution of DKA. His repeat HbA1c was 13.6. Seen by certified breastfeeding educator, started on Lantus, discharged with Lantus and lispro as well as needles and insulin. Patient was continued on steroids. Will follow up with primary care for management of his newly diagnosed type II DM. Discharge Diet: Low fat/ Low Cholesterol, 2000 mg Sodium Diet, Carb Control Diet Discharge Activity: Return to Normal Activity Home Medications: Medications to take at Discharge Cholecalciferol (Vitamin D3) [Vitamin D3] 50,000 unit PO ANDRADE 02/23/18 Omeprazole Magnesium [Prilosec Otc] 10 mg PO DAILY 02/23/18 Paroxetine HCl [Paxil] 30 mg PO DAILY 02/23/18 Prednisone 10 mg PO DAILY 02/23/18 Insulin Glargine [Lantus SoloStar Pen] 15 units SC DAILY #1 pen 02/25/18 Insulin Lispro [Humalog KwikPen] See Protocol SQ ACHS #1 insuln.pen 02/25/18 Following Prescrptions Were Given to Patient: Insulin Glargine [Lantus SoloStar Pen] 15 units SC DAILY #1 pen Insulin Lispro [Humalog KwikPen] See Protocol SQ ACHS #1 insuln.pen Other Amb Orders: Glucometer Location: None Selected Primary Care Physician: Hector Luciano MD [Primary Care Provider] - Please follow up with your Primary Care Physician in: within 1-2 weeks Disposition: Home Minutes spent on discharge:: 45 Patient Condition:: Stable Medical Necessity - Tobacco Use Smoking Status: Never smoker Tobacco Use: Non-smoker Meaningful Use Info Meaningful Use Diagnoses (Choose all that apply): None applicable Code Visit Inpatient E&M: 67088 Subs Hosp L2
[2018-02-25] MEDS: Pantoprazole Sodium 20 MG Tablet PO (09:53)
[2018-02-25] MEDS: PARoxetine 10 MG Tablet 30 MG PO (09:54)
--- NOTE | 2018-02-25 09:57 | NURSING ---
diabetic teaching completed. pt demonstrated proper insulin administration with am lantus. Alma, internship coordinator, in to talk with patient as well
[2018-02-25] MEDS: Glucerna Shake 120 ML LIQUID PO (10:55)
[2018-02-25 10:59] VITALS: BP 140/88; PULSE 86; RESP 16; TEMP 36.6; O2SAT 96
== END 2018-02-25 11:16 | disposition home or self-care (01) | DRG 639 ==
LOC: ED 16:52 → ICU 18:59 → MS2 02-24 10:18
PROVIDERS: Admitting Provider Internal Medicine; Emergency Provider Emergency Medicine; Family Provider Family Medicine; PCP Family Medicine; Visit Provider Internal Medicine
DX: E11.10 Type 2 diabetes mellitus with ketoacidosis without coma (principal); K21.9 Gastro-esophageal reflux disease without esophagitis; M35.3 Polymyalgia rheumatica; E87.6 Hypokalemia; I10 Essential (primary) hypertension; Z79.52 Long term (current) use of systemic steroids; F32.9 Major depressive disorder, single episode, unspecified; F41.9 Anxiety disorder, unspecified
CPT/HCPCS: 36415; 80048; 81001; 82009; 82962; 83036; 83735; 85025; 93005; 97802; 97803; 99282; J7030; A4216; J7799

== ENCOUNTER → 2018-03-24 10:42 | Outpatient (CLI) | payer SELFPAY ==
--- NOTE | 2018-03-24 11:02 | BD_ITS ---
STUDY: DUAL ENERGY X-RAY ABSORPTIOMETRY / DXA REASON FOR EXAM: Male, 52 years old. Prednisone use. No loss of height. TECHNIQUE: Bone Mineral Density (BMD) measurements of lumbar spine and bilateral hips were obtained. COMPARISON: None. FINDINGS: Lumbar Spine (L1-L4): g/cm2 (1.193) / T-score (-0.1) / Z-score (0.1) Findings are suggestive of normal bone density with a low fracture risk. Left Femur Total: g/cm2 (1.250) / T-score (1.0) / Z-score (1.4) Left Femoral Neck: g/cm2 (1.108) / T-score (0.3) / Z-score (1.0) Right Femur Total: g/cm2 (1.216) / T-score (0.8) / Z-score (1.2) Right Femoral Neck: g/cm2 (1.118) / T-score (0.4) / Z-score (1.1) BD/Dexa Bone Density Study IMPRESSION: The patient is considered normal as outlined below according to [employer] [place] Organization (WHO) criteria with a low fracture risk. Reference Information: The T-score is the number of standard deviations above or below the standard which is normal for young adults at their peak bone mineral density. The World Health Organization (WHO) interprets the T-scores as follows: Above -1 Normal bone density Between -1 and -2.5 Osteopenia Equal to / or below -2.5 Osteoporosis As a practical clinical guideline, osteopenia may be graded as follows: Mild -1 through -1.5 Moderate -1.6 through -2.0 Severe -2.1 through -2.4 The Z-score is the number of standard deviations above or below age-matched controls. A Z-score of less than -1.5 would be considered abnormal. References: 1. NIH Osteoporosis and Related Bone Diseases http://www.osteo.org 2. International Society for Clinical Densitometry http://www.iscd.org 3. National Osteoporosis Foundation http://www.nof.org Electronically Signed: Jared Dasilva MD at 14:47 EDT Tel [phone], Service support ,
== END ==
PROVIDERS: Family Provider Family Medicine; PCP Family Medicine
DX: Z79.52 Long term (current) use of systemic steroids (principal)
CPT/HCPCS: 77080

== ENCOUNTER 2018-04-06 07:48 | Outpatient (RCR) | payer SELFPAY ==
[2018-04-06 10:14] LABS: Erythrocyte Sedimentation Rate 17 mm/hr (0-20)
[2018-04-06 10:30] LABS: CRP 5.03 mg/L (0.0-3.0)
== END 2018-04-06 09:00 ==
LOC: MTLAB 07:48
PROVIDERS: Family Provider Family Medicine; PCP Family Medicine
DX: M35.3 Polymyalgia rheumatica (principal)
CPT/HCPCS: 36415; 85652; 86140

== ENCOUNTER 2018-05-08 07:57 | Outpatient (RCR) | payer SELFPAY ==
[2018-05-08 10:19] LABS: Erythrocyte Sedimentation Rate 17 mm/hr (0-20)
[2018-05-08 10:34] LABS: CRP 5.06 mg/L (0.0-3.0)
== END 2018-05-08 08:00 | disposition home or self-care (01) ==
LOC: MTLAB 07:57
PROVIDERS: Family Provider Family Medicine; PCP Family Medicine
DX: M35.3 Polymyalgia rheumatica (principal)
CPT/HCPCS: 36415; 85652; 86140

== ENCOUNTER 2018-06-08 08:30 | Outpatient (RCR) | payer SELFPAY ==
[2018-02-23 19:25] VITALS: BMI 29.6
[2018-06-08 10:21] LABS: Erythrocyte Sedimentation Rate 13 mm/hr (0-20)
[2018-06-08 11:12] LABS: CRP 5.61 mg/L (0.0-3.0)
--- OUTSIDE RECORDS SUMMARY | 2018-08-01 09:15 | XMS RPT_ITS ---
:1965 Author Organization OHIP Support Name Relationship Address Phone ARA TRACEY Unavailable [address] + [place] [address] S Unavailable Unavailable Unavailable ARA TRACEY Unavailable [address] + [place] [address] S Unavailable Unavailable Unavailable ARA, TRACEY Unavailable [address] + [place] [address] S Unavailable Unavailable Unavailable ARA, TRACEY Unavailable [phone] [place] [address] S Unavailable Unavailable Unavailable ARA, TRACEY Unavailable [address] + [place] [address] S Unavailable Unavailable Unavailable ARA, TRACEY Unavailable [phone] [place] [address] S Unavailable Unavailable Unavailable ARA, TRACEY Unavailable [address] + [place] [address] S Unavailable Unavailable Unavailable ARA, TRACEY Unavailable [phone] [place] [address] S Unavailable Unavailable Unavailable ARA, TRACEY Unavailable [address] + [place] [address] S Unavailable Unavailable Unavailable ARA, TRACEY Unavailable [address] + [place] [address] S Unavailable Unavailable Unavailable ARA, TRACEY Unavailable [phone] [place] [address] S Unavailable Unavailable Unavailable Care Team Providers Name Role Phone QING BARRIOS Attending Unavailable QING BARRIOS Referring Unavailable Mustapha, Hector Primary Care Unavailable QING BARRIOS Referring Unavailable Mustapha, Hector Primary Care Unavailable QING BARRIOS Attending Unavailable Mustapha, Hector Primary Care Unavailable [place], [place] Admitting Unavailable [place], [place] Attending Unavailable [place], [place] Admitting Unavailable [place], [place] Attending Unavailable [facility] Primary Care Unavailable [place], [place] Consulting Unavailable [place], [place] Admitting Unavailable [place], [place] Attending Unavailable [facility] Primary Care Unavailable [place], [place] Consulting Unavailable [place], [place] Admitting Unavailable [place], [place] Attending Unavailable [facility] Primary Care Unavailable [place], [place] Consulting Unavailable QING BARRIOS Attending Unavailable QING BARRIOS Referring Unavailable [facility] Primary Care Unavailable QING BARRIOS Consulting Unavailable QING BARRIOS Attending Unavailable QING BARRIOS Referring Unavailable [facility] Primary Care Unavailable QING BARRIOS Attending Unavailable QING BARRIOS Referring Unavailable [facility] Primary Care Unavailable QING BARRIOS Attending Unavailable QING BARRIOS Referring Unavailable [facility] Primary Care Unavailable QING BARRIOS Attending Unavailable QING BARRIOS Referring Unavailable [facility] Care Unavailable PROBLEMS PROBLEMS DATE TYPE CONDITION / CODE ATTENDING STATUS SOURCE 06/09/2018 Unknown M35.3 - Polymyalgia QING BARRIOS Active [place] rheumatica / Community M35.3(ICD-10) Hospital Repository 05/07/2018 Unknown M53.3 - QING BARRIOS Active [place] Sacrococcygeal Community disorders, not Hospital elsewhere classified Repository / M53.3(ICD-10) 02/27/2018 Unknown R94.4 - Abnormal QING BARRIOS results of kidney Community function studies / Hospital R94.4(ICD-10) Repository 02/02/2018 Unknown R70.0 - Elevated QING BARRIOS erythrocyte Community sedimentation rate / Hospital R70.0(ICD-10) Repository 02/02/2018 Unknown R79.82 - Elevated QING BARRIOS Active [place] C-reactive protein Community (CRP) / Hospital R79.82(ICD-10) Repository 02/02/2018 Unknown M85.80 - Other QING BARRIOS specified disorders Community of bone density and Hospital structure, Repository unspecified site / M85.80(ICD-10) 02/02/2018 Unknown Z79.899 - Other long QING BARRIOS Active [place] term (current) drug Community therapy / Hospital Z79.899(ICD-10) Repository PROCEDURES PROCEDURES No Procedure Records FoundRESULTS RESULTS ERYTHROCYTE SED RATE Collected: 06/08/2018 Status: F Source: [place] 8:48 AM [facility] REPOSITORY TYPE CODE TESTS RESULT OUT OF RANGE REFERENCE UNITS LAB L102.0000 0-20 mm/hr Normal SED RATE 13 Performed By: #### L101.9900 #### [facility] [address] [place], [place], [address] CRP Collected: 06/08/2018 Status: F Source: [place] 8:48 AM [facility] REPOSITORY TYPE CODE TESTS RESULT OUT OF RANGE REFERENCE UNITS LAB L501.6710 0.0-3.0 mg/L High 5.61 C-REACTIVE PROT Result Comment: C-Reactive Protein (CRP) provides useful information for the diagnosis, therapy and monitoring of inflammatory processes and associated diseases. For the evaluation of Relative Risk for Cardiovascular Disease, a High Sensitivity CRP (HSCRP) should be ordered. Performed By: #### L501.6710 #### [facility] [address] [place], [place], [address] ERYTHROCYTE SED RATE Collected: 05/08/2018 Status: F Source: [place] 8:01 AM [facility] REPOSITORY TYPE CODE TESTS RESULT OUT OF RANGE REFERENCE UNITS LAB L102.0000 0-20 mm/hr Normal SED RATE 17 Performed By: #### L101.9900 #### [facility] [address] [place], [place], [address] CRP Collected: 05/08/2018 Status: F Source: [place] 8:01 AM [facility] REPOSITORY TYPE CODE TESTS RESULT OUT OF RANGE REFERENCE UNITS LAB L501.6710 0.0-3.0 mg/L High 5.06 C-REACTIVE PROT Result Comment: C-Reactive Protein (CRP) provides useful information for the diagnosis, therapy and monitoring of inflammatory processes and associated diseases. For the evaluation of Relative Risk for Cardiovascular Disease, a High Sensitivity CRP (HSCRP) should be ordered. Performed By: #### L501.6710 #### [facility] [address] [place], [address] ERYTHROCYTE SED RATE Collected: 04/06/2018 Status: F Source: [place] 7:54 AM [facility] REPOSITORY TYPE CODE TESTS RESULT OUT OF RANGE REFERENCE UNITS LAB L102.0000 0-20 mm/hr Normal SED RATE 17 Performed By: #### L101.9900 #### [facility] [address] [place], [address] CRP Collected: 04/06/2018 Status: F Source: [place] 7:54 AM [facility] REPOSITORY TYPE CODE TESTS RESULT OUT OF RANGE REFERENCE UNITS LAB L501.6710 0.0-3.0 mg/L High 5.03 C-REACTIVE PROT Result Comment: C-Reactive Protein (CRP) provides useful information for the diagnosis, therapy and monitoring of inflammatory processes and associated diseases. For the evaluation of Relative Risk for Cardiovascular Disease, a High Sensitivity CRP (HSCRP) should be ordered. Performed By: #### L501.6710 #### [facility] [address] [place], [address] DEXA BONE DENSITY Observed: 03/24/2018 Status: F Source: [place] STUDY 10:48 AM [facility] REPOSITORY [facility] Imaging Services [address] [place] [address] Dexa Bone Density Study MR#: [id number] Acct: [id number] Name: ARAMAXIM Delfin Rep #: [id number] : 1965 M 52 From: Jared Dasilva MD PCP: Hector Luciano MD Status: [facility] Study: Dexa Bone Density Study Date of Exam: 03/24/18 Exam# [id number] Ordering Dr: TARIK ANDRADE STUDY: DUAL ENERGY X-RAY ABSORPTIOMETRY / DXA REASON FOR EXAM: Male, 52 years old. Prednisone use. No loss of height. TECHNIQUE: Bone Mineral Density (BMD) measurements of lumbar spine and bilateral hips were obtained. COMPARISON: None. FINDINGS: Lumbar Spine (L1-L4): g/cm2 (1.193) / T-score (-0.1) / Z-score (0.1) Findings are suggestive of normal bone density with a low fracture risk. Left Femur Total: g/cm2 (1.250) / T-score (1.0) / Z-score (1.4) Left Femoral Neck: g/cm2 (1.108) / T-score (0.3) / Z- score (1.0) Right Femur Total: g/cm2 (1.216) / T-score (0.8) / Z- score (1.2) Right Femoral Neck: g/cm2 (1.118) / T-score (0.4) / Z- score (1.1) BD/Dexa Bone Density Study IMPRESSION: The patient is considered normal as outlined below according to World [place] Organization (WHO) criteria with a low fracture risk. Reference Information: The T-score is the number of standard deviations above or below the standard which is normal for young adults at their peak bone mineral density. The World Health Organization (WHO) interprets the T-scores as follows: Above -1 Normal bone density Between -1 and -2.5 Osteopenia Equal to / or below -2.5 Osteoporosis As a practical clinical guideline, osteopenia may be graded as follows: Mild -1 through -1.5 Moderate -1.6 through -2.0 Severe -2.1 through -2.4 The Z-score is the number of standard deviations above or below age-matched controls. A Z-score of less than -1.5 would be considered abnormal. References: 1. NIH Osteoporosis and Related Bone Diseases http://www.osteo.org 2. International Society for Clinical Densitometry http://www.iscd.org 3. National Osteoporosis Foundation http://www.nof.org Electronically Signed: Jared Dasilva MD at 14:47 EDT Tel [phone], Service support , CC: Hector Luciano MD; TARIK ANDRADE Director Of Pharmacy: Signed DISCHARGE SUMMARY Observed: 02/26/2018 Status: F Source: [place] 5:47 PM [facility] REPOSITORY [facility] Medical Records Department [address] [place] [address] Discharge Summary 02/25/18 0925 MR#: [id number] Acct: [id number] Name: MAXIM BULLOCK Rep #: [id number] : 1965 52 From: Carlee Raymond MD PCP: Hector Luciano MD Status: DIS IN Y Location: [place] [address]-1 Discharge Date and Diagnosis Date of Admission: 02/23/18 Date of Discharge: 02/25/18 - Primary Discharge Diagnosis Active and Suspected Problems DKA (diabetic ketoacidoses) (Acute) Newly Diagnosed Type 2 DM Hypokalemia - Secondary Discharge Diagnosis Chronic Problems Hypertension (Chronic) PMR (polymyalgia rheumatica) (Chronic) Hospital Course and Treatment None Operations: None Procedures: None Summary of Care Provided: The patient is a 52 year old M with recent diagnosis of polymyalgia rheumatica, on prednisone, admitted with complaints of fatigue, polydipsia, polyuria, blurred vision as well as dizziness ongoing for more than 3 weeks. His blood sugar has been up to about 500, complains of weight loss was lost more than 26 pounds. He presented to his primary care doctor who ordered outpatient blood and reportedly had HbA1c of 15, asked to come to the ED for management of DKA. In the ED, patient was found to have a sodium of 130, bicarbonate of 16, anion gap of 70, blood glucose of 33. Urinalysis shows ketones and glucose with small serum ketones. Patient was started on insulin drip, admitted to the ICU, monitored overnight with resolution of DKA. His repeat HbA1c was 13.6. Seen by sterile instrument technician, started on Lantus, discharged with Lantus and lispro as well as needles and insulin. Patient was continued on steroids. Will follow up with primary care for management of his newly diagnosed type II DM. Discharge Diet: Low fat/ Low Cholesterol, 2000 mg Sodium Diet, Carb Control Diet Discharge Activity: Return to Normal Activity Home Medications: Medications to take at Discharge Cholecalciferol (Vitamin D3) [Vitamin D3] 50,000 unit PO ANDRADE 02/23/18 Omeprazole Magnesium [Prilosec Otc] 10 mg PO DAILY 02/23/18 Paroxetine HCl [Paxil] 30 mg PO DAILY 02/23/18 Prednisone 10 mg PO DAILY 02/23/18 Insulin Glargine [Lantus SoloStar Pen] 15 units SC DAILY #1 pen 02/25/18 Insulin Lispro [Humalog KwikPen] See Protocol SQ ACHS #1 insuln.pen 02/25/18 Following Prescrptions Were Given to Patient: Insulin Glargine [Lantus SoloStar Pen] 15 units SC DAILY #1 pen Insulin Lispro [Humalog KwikPen] See Protocol SQ ACHS #1 insuln.pen Other Amb Orders: Glucometer Location: None Selected Primary Care Physician: Hector Lucaino MD [Primary Care Provider] - Please follow up with your Primary Care Physician in: within 1-2 weeks Disposition: Home Minutes spent on discharge:: 45 Patient Condition:: Stable Medical Necessity - Tobacco Use Smoking Status: Never smoker Tobacco Use: Non-smoker Meaningful Use Info Meaningful Use Diagnoses (Choose all that apply): None applicable Code Visit Inpatient E AND M: 20279 Subs Hosp L2 02/26/18 1747 <Electronically signed by Carlee Raymond MD> Date Carlee Raymond MD Cosigner Signature (if applicable): Date CC: Carlee Raymond MD; Hector Luciano MD Signed 12 LEAD ELECTROCARDIOGRAM Observed: 02/26/2018 Status: F Source: [place] 1:37 PM [facility] REPOSITORY [facility] Cardiovascular Services [address] [place] [address] 12 Lead EKG 02/23/18 1657 MR#: [id number] Acct: [id number] Name: MAXIM BULLOCK Rep #: [id number] : 1965 52 From: Saturnino Welch MD Attending Dr: Carlee Raymond MD Status: DIS IN Ordering Dr: Jackie Antoine MD Date: 02/23/18 Location: [facility] Sex: M C Admitted: 02/23/18 Test Reason : WEAKNESS Blood Pressure : / mmHG Vent. Rate : 079 BPM Atrial Rate : 079 BPM P-R Int : 152 ms QRS Dur : 098 ms QT Int : 374 ms P-R-T Axes : 019 002 053 degrees QTc Int : 428 ms Normal sinus rhythm Poor R wave progression Inferior IA, age undetermined, cannot be excluded Confirmed by YURI GOODE, SATURNINO ([id number]), news videotape editor RICKEY GRIFFIN ([id number]) on 02/26/2018 1:37:01 PM Referred By: TARIK ANDRADE Confirmed By:SATURNINO WELCH MD 02/26/18 1337 Date Saturnino Welch MD CC: Jackie Antoine MD; Carlee Raymond MD; Hector Luciano MD Signed DISCHARGE INSTRUCTION Observed: 02/25/2018 Status: F Source: [place] 10:50 AM [facility] REPOSITORY [facility] Medical Records Department [address] [place] [address] Instructions for Home/Discharge Instructions 02/25/18 0913 MR#: [id number] Acct: [id number] Name: MAXIM BULLOCK Rep #: [id number] : 1965 52 From: Carlee Raymond MD PCP: Hector Luciano MD Status: ADM IN - Discharge Diagnoses Current Active Problems: Current Active and Chronic Problems DKA (diabetic ketoacidoses) (Acute) Hypertension (Chronic) GERD (gastroesophageal reflux disease) (Acute) PMR (polymyalgia rheumatica) (Chronic) Reason(s) for Visit for Discharge Instructions: Acute DKA, newly diagnosed DM You will use the following diet at home:: Calorie/Carbohydrate Controlled (specify 1200, 1400, etc), Cardiac Your food should be the consistency of: Regular Your liquids should be the consistency of: Regular/Thin Discharge Activity: Return to Normal Activity Additional Instructions: You are being discharged with insulin. You will need to check your blood sugar 4 times a day -Before meals and at night. Watch out for signs of low blood sugar such as sweatiness, dizziness, feeling flushed. Blood sugar below 70 or close to 70's is hypoglycemia. When that happens, immediately take something sugary. Keep a log of your blood sugars and let your PCP know about your reading so that your insulin may be adjusted. Keep your self hydrated all the time. Continue to remain active. Allergies/Adverse Reactions: Allergies No Known Allergies Allergy (Verified 02/23/18 16:11) Medications to take at Discharge Cholecalciferol (Vitamin D3) [Vitamin D3] 50,000 unit PO ANDRADE 02/23/18 Omeprazole Magnesium [Prilosec Otc] 10 mg PO DAILY 02/23/18 Paroxetine HCl [Paxil] 30 mg PO DAILY 02/23/18 Prednisone 10 mg PO DAILY 02/23/18 Insulin Glargine [Lantus SoloStar Pen] 15 units SC DAILY #1 pen 02/25/18 Insulin Lispro [Humalog KwikPen] See Protocol SQ ACHS #1 insuln.pen 02/25/18 The following prescriptions were given: Insulin Glargine [Lantus SoloStar Pen] 15 units SC DAILY #1 pen Insulin Lispro [Humalog KwikPen] See Protocol SQ ACHS #1 insuln.pen Primary Care Physician: Hector Luciano MD [Primary Care Provider] - Please follow up with your Primary Care Physician in: within 1-2 weeks Test Results: Test results from this visit will be discussed in further detail at your follow-up appointment, if applicable. Proposed Discharge Date: 02/25/18 02/25/18 1050 <Electronically signed by Carlee Raymond MD> Date Carlee Raymond MD CC: Hector Luciano MD BEDSIDE GLUCOSE Collected: 02/25/2018 Status: F Source: [place] 7:39 AM [facility] REPOSITORY TYPE CODE TESTS RESULT OUT OF REFERENCE UNITS RANGE LAB L501.080 70-110 mg/dL High BEDSIDE GLU 298 Result Comment: MANAGEMENT OF PATIENT CARE PER NURSING PROTOCOL Performed By: #### L501.080 #### [facility] Point of Care [address] [place], [place] [address] BASIC METABOLIC Collected: 02/25/2018 Status: F Source: [place] PROFILE (BMP) 6:25 AM [facility] REPOSITORY TYPE CODE TESTS RESULT OUT OF RANGE REFERENCE UNITS LAB L501.0100 74-106 mg/dL High GLU 296 Result Comment: Glucose result greater than or equal to 200 mg/dL suggests DIABETES MELLITUS per A.D.A. criteria. Please note revised GLUCOSE reference range effective 2017. LAB L501.1000 7-18 mg/dL Normal BUN 13 LAB L501.1100 0.70-1.30 mg/dL Normal CREAT,SERUM 0.74 Result Comment: The validity of the calculated GFR AND GFRAA in patients over 70 years has not been determined. Clinical correlation is essential. LAB L501.1110 >60 mL/min Normal EST GFR 117 Result Comment: Non- GFR Calc LAB L501.1115 >60 mL/min Normal EST GFR - AA 141 Result Comment: GFR Calc LAB L501.1255 ml/min Normal Estimated CRCL 106.69 LAB L501.1300 10-20 RATIO BUN/CRE Normal 17.5 LAB L501.2200 8.5-10 mg/dL .1 CA Normal 9.0 LAB L501.5300 136-14 mmol/L 5 NA Normal 137 LAB L501.5600 3.5-5. mmol/L 1 K Normal 3.8 LAB L501.5900 98-107 mmol/L CL Normal 99 LAB L501.6100 21.0-3 mmol/L 2.0 CO2 Normal 24.0 LAB L501.6200 5-15 GAP Normal 14 Performed By: #### L500.2500 #### [facility] [address] [place], [place], [address] BEDSIDE GLUCOSE Collected: 02/24/2018 Status: F Source: [place] 9:14 PM [facility] REPOSITORY TYPE CODE TESTS RESULT OUT OF REFERENCE UNITS RANGE LAB L501.080 70-110 mg/dL High BEDSIDE GLU 361 Result Comment: MANAGEMENT OF PATIENT CARE PER NURSING PROTOCOL Performed By: #### L501.080 #### [facility] Point of Care [address] [place] [address] BEDSIDE GLUCOSE Collected: 02/24/2018 Status: F Source: [place] 3:44 PM [facility] REPOSITORY TYPE CODE TESTS RESULT OUT OF REFERENCE UNITS RANGE LAB L501.080 70-110 mg/dL High BEDSIDE GLU 359 Result Comment: MANAGEMENT OF PATIENT CARE PER NURSING PROTOCOL Performed By: #### L501.080 #### [facility] Point of Care [address] [place] [address] BEDSIDE GLUCOSE Collected: 02/24/2018 Status: F Source: [place] 11:35 AM [facility] REPOSITORY TYPE CODE TESTS RESULT OUT OF REFERENCE UNITS RANGE LAB L501.080 70-110 mg/dL High BEDSIDE GLU 385 Result Comment: MANAGEMENT OF PATIENT CARE PER NURSING PROTOCOL Performed By: #### L501.080 #### [facility] Point of Care [address] [place] [address] BASIC METABOLIC Collected: 02/24/2018 Status: F Source: [place] PROFILE (BMP) 11:08 AM [facility] REPOSITORY Order Comment: Comments: Call MD with results STAT TYPE CODE TESTS RESULT OUT OF RANGE REFERENCE UNITS LAB L501.0100 74-106 mg/dL High GLU 383 Result Comment: Glucose result greater than or equal to 200 mg/dL suggests DIABETES MELLITUS per A.D.A. criteria. Please note revised GLUCOSE reference range effective 2017. LAB L501.1000 7-18 mg/dL Normal BUN 8 LAB L501.1100 0.70-1.30 mg/dL Normal CREAT,SERUM 0.79 Result Comment: The validity of the calculated GFR AND GFRAA in patients over 70 years has not been determined. Clinical correlation is essential. LAB L501.1110 >60 mL/min Normal EST GFR 108 Result Comment: Non- GFR Calc LAB L501.1115 >60 mL/min Normal EST GFR - AA 131 Result Comment: GFR Calc LAB L501.1255 ml/min Normal Estimated CRCL 99.94 LAB L501.1300 10-20 RATIO Normal BUN/CRE 10.1 LAB L501.2200 8.5-10 mg/dL Low .1 CA 8.1 LAB L501.5300 136-14 mmol/L Low 5 NA 135 LAB L501.5600 3.5-5. mmol/L Normal 1 K 3.9 LAB L501.5900 98-107 mmol/L Normal CL 103 LAB L501.6100 21.0-3 mmol/L Normal 2.0 CO2 24.0 LAB L501.6200 5-15 Normal GAP 8 Performed By: #### L500.2500 #### [facility] [address] [place], [address] BEDSIDE GLUCOSE Collected: 02/24/2018 Status: F Source: [place] 7:53 AM [facility] REPOSITORY TYPE CODE TESTS RESULT OUT OF REFERENCE UNITS RANGE LAB L501.080 70-110 mg/dL High BEDSIDE GLU 115 Result Comment: MANAGEMENT OF PATIENT CARE PER NURSING PROTOCOL Performed By: #### L501.080 #### [facility] Point of Care [address] [place] [address] BEDSIDE GLUCOSE Collected: 02/24/2018 Status: F Source: [place] 6:02 AM [facility] REPOSITORY TYPE CODE TESTS RESULT OUT OF REFERENCE UNITS RANGE LAB L501.080 70-110 mg/dL High BEDSIDE GLU 146 Result Comment: MANAGEMENT OF PATIENT CARE PER NURSING PROTOCOL Performed By: #### L501.080 #### [facility] Point of Care [address] [facility] [facility] [place] [address] BASIC METABOLIC Collected: 02/24/2018 Status: F Source: [place] PROFILE (BMP) 4:20 AM [facility] REPOSITORY Order Comment: Comments: Call MD with results STAT TYPE CODE TESTS RESULT OUT OF RANGE REFERENCE UNITS LAB L501.0100 74-106 mg/dL High GLU 145 Result Comment: Fasting Glucose result greater than or equal to 126 mg/dL suggests DIABETES MELLITUS per A.D.A. criteria. Please note revised GLUCOSE reference range effective 2017. LAB L501.1000 7-18 mg/dL Normal BUN 9 LAB L501.1100 0.70-1.30 mg/dL Normal CREAT,SERUM 0.73 Result Comment: The validity of the calculated GFR AND GFRAA in patients over 70 years has not been determined. Clinical correlation is essential. LAB L501.1110 >60 mL/min Normal EST GFR 120 Result Comment: Non- GFR Calc LAB L501.1115 >60 mL/min Normal EST GFR - AA 145 Result Comment: GFR Calc LAB L501.1255 ml/min Normal Estimated CRCL 108.15 LAB L501.1300 10-20 RATIO BUN/CRE Normal 12.4 LAB L501.2200 8.5-10 mg/dL Low .1 CA 8.2 LAB L501.5300 136-14 mmol/L 5 NA Normal 141 LAB L501.5600 3.5-5. mmol/L Low 1 K 3.2 LAB L501.5900 98-107 mmol/L High CL 108 LAB L501.6100 21.0-3 mmol/L 2.0 CO2 Normal 22.0 LAB L501.6200 5-15 GAP Normal 11 Performed By: #### L500.2500, L501.5200 #### [facility] [address] [place], [address] MAGNESIUM Collected: 02/24/2018 Status: F Source: [place] 4:20 AM [facility] REPOSITORY Order Comment: Comments: Call MD with results STAT TYPE CODE TESTS RESULT OUT OF RANGE REFERENCE UNITS LAB L501.5200 1.6-2.6 mg/dL Normal MG 2.1 Performed By: #### L500.2500, L501.5200 #### [facility] [address] [place], [address] CBC W/DIFF, AUTOMATED Collected: 02/24/2018 Status: F Source: [place] 4:20 AM [facility] REPOSITORY TYPE CODE TESTS RESULT OUT OF RANGE REFERENCE UNITS LAB L100.1000 4.4-11.0 K/mm3 Normal WBC 4.9 LAB L100.1200 4.6-6.2 M/mm3 Normal RBC 4.98 LAB L100.1300 13.0-16.5 g/dl Normal HGB 13.5 LAB L100.1400 40-54 % Low HCT 37.8 LAB L100.1500 80-94 fL Low MCV 75.9 LAB L100.1600 27.0-32.0 pg Normal MCH 27.1 LAB L100.1700 32-36 g/gl Normal MCHC 35.7 LAB L100.1810 11.6-14.6 % Normal RDW CV 13.9 LAB L100.1820 35.1-43.9 fl Normal RDW SD 38.0 LAB L100.1900 150-450 K/mm3 Normal PLT 223 LAB L100.2000 6.2-12.0 fl Normal MPV 8.5 LAB L100.2100 47-70 % Low NEUT% 43.8 LAB L100.2200 19-41 % High LY% 47.0 LAB L100.2300 0-10 % Normal MONO% 7.0 LAB L100.2400 0-5 % Normal EO% 1.4 LAB L100.2500 0-1 % Normal BASO% 0.6 LAB L100.2550 0.0-0.9 % Normal IM GRAN % 0.200 Result Comment: IG% - Immature Granulocytes (promyelocytes, myelocytes and metamyelocytes) > 1% indicates that a LEFT SHIFT is Present. LAB L100.2620 2.0-7.7 X10 3/uL Normal Absolute Neut 2.1 LAB L100.2720 0.83-4.51 X10 3/ul Normal Absolute Lymph 2.28 Performed By: #### L100.0100 #### [facility] [place], [place], [address] BEDSIDE GLUCOSE Collected: 02/24/2018 Status: F Source: [place] 4:12 AM [facility] REPOSITORY TYPE CODE TESTS RESULT OUT OF REFERENCE UNITS RANGE LAB L501.080 70-110 mg/dL High BEDSIDE GLU 154 Result Comment: MANAGEMENT OF PATIENT CARE PER NURSING PROTOCOL Performed By: #### L501.080 #### [facility] Point of Care [address], [place] [address] BEDSIDE GLUCOSE Collected: 02/24/2018 Status: F Source: [place] 3:02 AM [facility] REPOSITORY TYPE CODE TESTS RESULT OUT OF REFERENCE UNITS RANGE LAB L501.080 70-110 mg/dL High BEDSIDE GLU 159 Result Comment: MANAGEMENT OF PATIENT CARE PER NURSING PROTOCOL Performed By: #### L501.080 #### [facility] Point of Care [address] [place] [address] BEDSIDE GLUCOSE Collected: 02/24/2018 Status: F Source: [place] 1:59 AM [facility] REPOSITORY TYPE CODE TESTS RESULT OUT OF REFERENCE UNITS RANGE LAB L501.080 70-110 mg/dL High BEDSIDE GLU 179 Result Comment: MANAGEMENT OF PATIENT CARE PER NURSING PROTOCOL Performed By: #### L501.080 #### [facility] Point of Care [address] [place] [address] BASIC METABOLIC Collected: 02/24/2018 Status: F Source: [place] PROFILE (BMP) 12:30 AM [facility] REPOSITORY Order Comment: Comments: Call MD with results STAT TYPE CODE TESTS RESULT OUT OF RANGE REFERENCE UNITS LAB L501.0100 74-106 mg/dL High GLU 214 Result Comment: Glucose result greater than or equal to 200 mg/dL suggests DIABETES MELLITUS per A.D.A. criteria. Please note revised GLUCOSE reference range effective 2017. LAB L501.1000 7-18 mg/dL Normal BUN 10 LAB L501.1100 0.70-1.30 mg/dL Low CREAT,SERUM 0.68 Result Comment: The validity of the calculated GFR AND GFRAA in patients over 70 years has not been determined. Clinical correlation is essential. LAB L501.1110 >60 mL/min Normal EST GFR 128 Result Comment: Non- GFR Calc LAB L501.1115 >60 mL/min Normal EST GFR - AA 155 Result Comment: GFR Calc LAB L501.1255 ml/min Normal Estimated CRCL 116.11 LAB L501.1300 10-20 RATIO BUN/CRE Normal 14.6 LAB L501.2200 8.5-10 mg/dL Low .1 CA 7.9 LAB L501.5300 136-14 mmol/L Low 5 NA 135 LAB L501.5600 3.5-5. mmol/L Low 1 K 3.2 LAB L501.5900 98-107 mmol/L CL Normal 105 LAB L501.6100 21.0-3 mmol/L Low 2.0 CO2 19.0 LAB L501.6200 5-15 GAP Normal 11 Performed By: #### L500.2500 #### [facility] [address] [place], [address] BEDSIDE GLUCOSE Collected: 02/23/2018 Status: F Source: [place] 11:57 PM [facility] REPOSITORY TYPE CODE TESTS RESULT OUT OF REFERENCE UNITS RANGE LAB L501.080 70-110 mg/dL High BEDSIDE GLU 237 Result Comment: MANAGEMENT OF PATIENT CARE PER NURSING PROTOCOL Performed By: #### L501.080 #### [facility] Point of Care [address] [place] [address] BEDSIDE GLUCOSE Collected: 02/23/2018 Status: F Source: [place] 11:00 PM [facility] REPOSITORY TYPE CODE TESTS RESULT OUT OF REFERENCE UNITS RANGE LAB L501.080 70-110 mg/dL High BEDSIDE GLU 248 Result Comment: MANAGEMENT OF PATIENT CARE PER NURSING PROTOCOL Performed By: #### L501.080 #### [facility] Point of Care [address] [place] [address] BEDSIDE GLUCOSE Collected: 02/23/2018 Status: F Source: [place] 9:41 PM [facility] REPOSITORY TYPE CODE TESTS RESULT OUT OF REFERENCE UNITS RANGE LAB L501.080 70-110 mg/dL High BEDSIDE GLU 266 Result Comment: MANAGEMENT OF PATIENT CARE PER NURSING PROTOCOL Performed By: #### L501.080 #### [facility] Point of Care [address] [place] [address] HEMOGLOBIN A1C Collected: 02/23/2018 Status: F Source: [place] 8:40 PM [facility] REPOSITORY Order Comment: Comments: as add on test TYPE CODE TESTS RESULT OUT OF RANGE REFERENCE UNITS LAB L501.9985 4.2-6.3 % High HGB A1C 13.6 Performed By: #### L501.9985 #### [facility] [address] [place], [address] BASIC METABOLIC Collected: 02/23/2018 Status: F Source: [place] PROFILE (BMP) 8:40 PM [facility] REPOSITORY Order Comment: Comments: Call MD with results STAT TYPE CODE TESTS RESULT OUT OF RANGE REFERENCE UNITS LAB L501.0100 74-106 mg/dL High GLU 254 Result Comment: Glucose result greater than or equal to 200 mg/dL suggests DIABETES MELLITUS per A.D.A. criteria. Please note revised GLUCOSE reference range effective 2017. LAB L501.1000 7-18 mg/dL Normal BUN 13 LAB L501.1100 0.70-1.30 mg/dL Normal CREAT,SERUM 0.77 Result Comment: The validity of the calculated GFR AND GFRAA in patients over 70 years has not been determined. Clinical correlation is essential. LAB L501.1110 >60 mL/min Normal EST GFR 112 Result Comment: Non- GFR Calc LAB L501.1115 >60 mL/min Normal EST GFR - AA 135 Result Comment: GFR Calc LAB L501.1255 ml/min Normal Estimated CRCL 102.54 LAB L501.1300 10-20 RATIO BUN/CRE Normal 16.9 LAB L501.2200 8.5-10 mg/dL Low .1 CA 8.0 LAB L501.5300 136-14 mmol/L Low 5 NA 132 LAB L501.5600 3.5-5. mmol/L 1 K Normal 3.8 Result Comment: Moderate Hemolysis, Result may be falsely increased. LAB L501.5900 98-107 mmol/L Normal CL 100 LAB L501.6100 21.0-32.0 mmol/L Low CO2 18.0 LAB L501.6200 5-15 Normal GAP 14 Performed By: #### L500.2500 #### [facility] [address] [place], [address] BEDSIDE GLUCOSE Collected: 02/23/2018 Status: F Source: [place] 8:24 PM [facility] REPOSITORY TYPE CODE TESTS RESULT OUT OF REFERENCE UNITS RANGE LAB L501.080 70-110 mg/dL High BEDSIDE GLU 246 Result Comment: MANAGEMENT OF PATIENT CARE PER NURSING PROTOCOL Performed By: #### L501.080 #### [facility] Point of Care [address] [place] [address] HISTORY AND PHYSICAL Observed: 02/23/2018 Status: F Source: [place] EXAM 8:16 PM [facility] REPOSITORY [facility] Medical Records Department [address] [place] [address] History and Physical 02/23/18 1845 MR#: [id number] Acct: [id number] Name: MAXIM BULLOCK Rep #: [id number] : 1965 52 From: Carlee Raymond MD PCP: Hector Luciano MD Status: ADM IN Y Location: ICU ICU- Problem List (1) DKA (diabetic ketoacidoses) Status: Acute Qualifiers: Diabetes mellitus type: type 2 Diabetes mellitus complication detail: without coma Qualified Code(s): E11.10 - Type 2 diabetes mellitus with ketoacidosis without coma (2) GERD (gastroesophageal reflux disease) Status: Acute Qualifiers: Esophagitis presence: esophagitis presence not specified Qualified Code(s): K21.9 - Gastro-esophageal reflux disease without esophagitis (3) PMR (polymyalgia rheumatica) Status: Chronic History of Present Illness Date of Admission: 02/23/18 Chief Complaint: Generalised weakness, dizziness, blurred vision, polydipsia, polyuria - >3 weeks The patient is a 52 year old M with a recent diagnosis of polymyalgia rheumatica, started on prednisone, who comes in with complaints of fatigue, polydipsia, polyuria, blurred vision as well as dizziness ongoing for more than 3 weeks. Patient had noticed his symptoms getting worse 3 days ago, I tried calling to the primary care office but they were close. He brought his friend's glucometer and check his blood sugar and was reportedly 499. He tried to control his sugars diet and repeat checking has shown that sugars had gone down to about 200s. He called in this morning to see his primary care doctor and blood sugar was reportedly more than 320, his HbA1c was also more than 15. He was asked to come to the ED. In the ED, his temperature 97.6, blood pressure was 155/95, heart rate 77, SPO2 is 96% on room air. His admitting blood work was remarkable for sodium of 130, chloride 97, potassium 3.7, bicarbonate 16, anion gap of 17, BUN 16, creatinine 0.84. His UA showed clear urine, glucose 1000, with ketones. Past Medical History Past Medical History (Chronic Problems): Chronic Problems Hypertension (Chronic) PMR (polymyalgia rheumatica) (Chronic) Allergies No Known Allergies Allergy (Verified 02/23/18 16:11) Home Medications: Ambulatory Orders Medication Instructions Recorded Cholecalciferol (Vitamin D3) 50,000 unit PO ANDRADE 02/23/18 Surgical History: - - knee surgery years ago Psychiatric History: No pertinent psych hx Lives: Spouse/ Significant Other Smoking Status: Never smoker Tobacco Use: Non-smoker Alcohol: None Drugs: None - *Family History Paternal History Items: No pertinent history Maternal History Items: No pertinent history Review of Systems Constitutional: Denies: Anorexia, Chills, Fever, Malaise, Weakness, Weight Change Eyes: Denies: Blurred vision, Cataracts, Conjunctivae Inflammation, Pain, Redness, Vision Change HEENT: Denies: Difficulty Hearing, Difficulty Swallowing, Head Aches, Hearing Changes, Sinus Congestion, Sinus Drainage Cardiovascular: Denies: Chest Pain, Claudication, Orthopnea, Palpitations, Paroxysmal Noc. Dyspnea Respiratory: Denies: Cough, Shortness of Breath, Shortness of breath at rest, Shortness of breath upon exertion, Sputum production Gastrointestinal: Denies: Abdominal Pain, Constipation, Hematemesis, Hematochezia, Nausea, Vomiting Genitourinary: Denies: Dysuria, Frequency, Incontinence Musculoskeletal: Denies: Joint Pain, Joint stiffness, Joint swelling, Joint Tenderness Skin: Denies: Dryness, Pruritis, Rash, Wounds Neurological: Denies: Difficulty swallowing, Focal weakness, Numbness, Tingling Psychiatric: Denies: Anxiety, Depression, Homicidal Ideations, Suicidal Ideations Hematologic/ Lymphatic: Denies: Easy Bruising, Easy Bleeding VTE Information - Inpt Only VTE Present on Admission: No VTE Pharm Prophylaxis ordered?: Yes Patient Problems: Active and Suspected Problems DKA (diabetic ketoacidoses) (Acute) GERD (gastroesophageal reflux disease) (Acute) - Physical Exam General: Alert, Oriented x3, Cooperative, No apparent distress HEENT: Atraumatic, PERRLA, EOMI, Normocephalic Oral: Moist Mucosa Neck: Supple, No JVD, Negative Carotid Bruits Lungs: Clear to auscultation, Normal air movement Cardiovascular: Regular rate, Regular Rhythm, Normal S1, Normal S2, No murmurs Abdomen: Bowel Sounds Present, Soft, Non Tender Extremities: No edema Skin: No rashes, No breakdown Musculoskeletal: No Tenderness to Palpation of Joints or Extremities Lymphatic: No Cervical, Supraclavicular, or Inguinal Adenopathy Neurological: Cranial nerves II-XII grossly intact Psych/Mental Status: Normal Affect, Appropriate Vital Signs Temp Pulse Resp BP Pulse Ox 97.6 F L 67 18 137/88 H 99 02/23/18 16:09 02/23/18 18:24 02/23/18 18:24 02/23/18 18:24 02/23/18 18:24 Oxygen Delivery Method Room Air Weight: 85 kg Body Mass Index (BMI) 29.3 Laboratory Tests Past 24 Hrs WBC 6.6 RBC 5.47 Hgb 14.9 Hct 42.1 MCV 77.0 L MCH 27.2 MCHC 35.4 WBC RBC Hgb Hct MCV MCH MCHC RDW RDW Differential Plt Count MPV Immature Gran % (Auto) Neut % (Auto) Assessment/Plan All Active Problems DKA (diabetic ketoacidoses) (Acute) GERD (gastroesophageal reflux disease) (Acute) 52 year old M with a recent diagnosis of polymyalgia rheumatica, started on prednisone, who comes in with complaints of fatigue, polydipsia, polyuria, blurred vision as well as dizziness ongoing for more than 3 weeks. 1. Acute DKA, newly diagnosed diabetic, HbA1c reportedly 15 and the outside facility, patient is on steroid Plan: Admit to the ICU, managed on insulin drip per protocol, monitor for electrolyte imbalances, IV fluids 2. Newly diagnosed DM, will consult dietitian, will check HbA1c, patient will most likely need insulin on discharge 3. Polymyalgia rheumatica, pain is fairly controlled, will continue steroids. 4. GERD, on PPI 5. Anxiety/depression, on Paxil 6. DVT PPx- Heparin SC Code Visit Inpatient E AND M: [id number] Init Hosp L3 02/23/18 2016 <Electronically signed by Carlee Raymond MD> Date Carlee Raymond MD Cosigner Signature: Date (if applicable) CC: Carlee Raymond MD; Hector Luciano MD Signed EMERGENCY DEPARTMENT Observed: 02/23/2018 Status: F Source: [place] SUMMARY 6[facility]46 [facility]IT[facility] Medical Records Department [address] [place] [address] Emergency Department Summary 02/23/18 1734 MR#: [id number] Acct: [id number] Name: MAXIM BULLOCK Rep #: [id number] : 1965 52 From: Jackie Antoine MD PCP: Hector Luciano MD Status: REG ER - ER Visit Summary Date of Service: 02/23/18 Chief Complaint: Elevated blood sugar History of Present Illness: The patient is a 52 M presenting with elevated blood sugar. Patient states that he has been testing his blood sugar with his friend's machine over the past several days. He states is been up to 500. He complains of polyuria and polydipsia. He states he has been losing weight over the past 6 weeks he has lost 26 pounds. He saw his primary care physician today who ordered outpatient lab work. He was then later called and advised to come to the ED for concern of diabetes. He has a history of GERD and polymyalgia rheumatica. He is on prednisone chronically. He has had nausea with no vomiting. He denies other complaints. Physical Examination: Vitals are stable. Patient is afebrile. Alert no acute distress. HEENT exam is unremarkable. Neck is supple. Lungs are clear and equal bilaterally. Heart is regular rate and rhythm. Abdomen is soft nontender nondistended. Extremities are unremarkable. Skin is warm and dry. No focal neurologic deficit. Remainder of exam is unremarkable. Emergency Department Course and Treatment: Patient is given IV fluids. EKG is sinus rate is 79. CBC unremarkable. Chemistries show sodium 130, CO2 16, anion gap 17, glucose 339. Urinalysis shows ketones and glucose. Serum ketones are small. Patient was started on insulin drip. Discussed with Dr. Raymond for admission. Disposition: Admission Impression: Diabetic ketoacidosis This note was generated with [employer] dictation software. It may contain incorrect words, spelling, and punctuation that were not noted in review of the chart prior to signing ED Disposition - Plan for ED Patient: Chief Complaint: Hyperglycemia Referrals: Hector Luciano MD [Primary Care Provider] - What to do if you have Problems For any increased pain, shortness of breath, bleeding, nausea or vomiting, chest pain, or any unexpected problems, contact your Primary Care Provider. Call [facility] ([phone]) or report to the closest Emergency Room. Call 911 if necessary. 02/23/18 1846 <Electronically signed by Jackie Antoine MD> Date Jackie Antoine MD Cosigner Signature (If Indicated): Date CC: Hector Luciano MD URINALYSIS, COMPLETE Collected: 02/23/2018 Status: F Source: [place] 5:08 PM [facility] REPOSITORY Order Comment: How was Urine Obtained? CLEAN CATCH TYPE CODE TESTS RESULT OUT OF RANGE REFERENCE UNITS LAB L400.3000 Yellow COLOR Normal Yellow LAB L400.3050 Clear Normal CLARITY Clear LAB L400.3200 Normal mg/dl High GLUCOSE, UR 1000 LAB L400.3300 Negative mg/dL Normal BILIRUBIN URINE Negative LAB L400.3400 Negative mg/dl High KETONE UR 150 Result Comment: CRITICAL VALUE *H CRITICAL VALUE VERIFIED. CALLED TO NATALIA PEDERSEN 02/23/18 2846 Jimmy Jones. RESULTS READ BACK BY NATALIA . LAB L400.3465 1.002-1.030 Normal SP.GR. DIPSTX 1.025 LAB L400.3550 5.0 - 8.0 pH Normal UR 5.0 LAB L400.3600 Negative mg/dl High 15 PROT DIPSTX LAB L400.3700 Normal mg/dl Normal UROBILI Normal LAB L400.3750 Negative Normal NITRITE UR Negative LAB L400.3780 Negative /ul High 25 OCCULT BLOOD-UR LAB L400.3800 Negative /ul Normal LEUK ESTERASE Negative LAB L400.4050 0-5 /hpf 0 Normal WBC SEEN LAB L400.4100 0-5 /hpf 0 Normal RBC-UA SEEN LAB L400.4150 0-5 /hpf 0 Normal SQUAM EPI SEEN LAB L400.4300 None Seen /hpf 0 Normal BACTERIA SEEN LAB L400.4350 <or=2+ /hpf 0 Normal MUCUS, URINE SEEN Performed By: #### L400.0001 #### [facility] [address] [place], [place], [address] CBC W/DIFF, AUTOMATED Collected: 02/23/2018 Status: F Source: [place] 4:54 PM [facility] REPOSITORY TYPE CODE TESTS RESULT OUT OF RANGE REFERENCE UNITS LAB L100.1000 4.4-11.0 K/mm3 Normal WBC 6.6 LAB L100.1200 4.6-6.2 M/mm3 Normal RBC 5.47 LAB L100.1300 13.0-16.5 g/dl Normal HGB 14.9 LAB L100.1400 40-54 % Normal HCT 42.1 LAB L100.1500 80-94 fL Low MCV 77.0 LAB L100.1600 27.0-32.0 pg Normal MCH 27.2 LAB L100.1700 32-36 g/gl Normal MCHC 35.4 LAB L100.1810 11.6-14.6 % Normal RDW CV 13.7 LAB L100.1820 35.1-43.9 fl Normal RDW SD 38.5 LAB L100.1900 150-450 K/mm3 Normal PLT 283 LAB L100.2000 6.2-12.0 fl Normal MPV 9.0 LAB L100.2100 47-70 % High NEUT% 71.4 LAB L100.2200 19-41 % Normal LY% 22.7 LAB L100.2300 0-10 % Normal MONO% 4.8 LAB L100.2400 0-5 % Normal EO% 0.5 LAB L100.2500 0-1 % Normal BASO% 0.3 LAB L100.2550 0.0-0.9 % Normal IM GRAN % 0.300 Result Comment: IG% - Immature Granulocytes (promyelocytes, myelocytes and metamyelocytes) > 1% indicates that a LEFT SHIFT is Present. LAB L100.2620 2.0-7.7 X10 3/uL Normal Absolute Neut 4.7 LAB L100.2720 0.83-4.51 X10 3/ul Normal Absolute Lymph 1.50 Performed By: #### L100.0100 #### [facility] [address] [place], [place], [address] ACETONE SERUM Collected: 02/23/2018 Status: F Source: [place] 4:54 PM [facility] REPOSITORY TYPE CODE TESTS RESULT OUT OF REFERENCE UNITS RANGE LAB L501.6900 NEG High ACETONE SERUM SMALL Performed By: #### L501.6900 #### [facility] [address] [place], [address] BASIC METABOLIC Collected: 02/23/2018 Status: F Source: [place] PROFILE (BMP) 4:54 PM [facility] REPOSITORY TYPE CODE TESTS RESULT OUT OF RANGE REFERENCE UNITS LAB L501.0100 74-106 mg/dL High GLU 339 Result Comment: Slight Lipemia, Result may be falsely increased. Glucose result greater than or equal to 200 mg/dL suggests DIABETES MELLITUS per A.D.A. criteria. Please note revised GLUCOSE reference range effective 2017. LAB L501.1000 7-18 mg/dL Normal BUN 16 Result Comment: Slight Lipemia, Result may be falsely increased. LAB L501.1100 0.70-1.30 mg/dL CREAT,SERUM Normal 0.84 Result Comment: Slight Lipemia, Result may be falsely increased. The validity of the calculated GFR AND GFRAA in patients over 70 years has not been determined. Clinical correlation is essential. LAB L501.1110 >60 mL/min Normal EST GFR 101 Result Comment: Non- GFR Calc LAB L501.1115 >60 mL/min Normal EST GFR - AA 122 Result Comment: GFR Calc LAB L501.1255 ml/min Normal Estimated CRCL 93.99 LAB L501.1300 10-20 RATIO Normal BUN/CRE 19.0 LAB L501.2200 8.5-10 mg/dL Normal .1 CA 8.5 Result Comment: Slight Lipemia, Result may be falsely increased. LAB L501.5300 136-145 mmol/L Low NA 130 LAB L501.5600 3.5-5.1 mmol/L Normal K 3.7 Result Comment: Moderate Hemolysis, Result may be falsely increased.-Slight Lipemia, Result may be falsely increased. LAB L501.5900 98-107 mmol/L Low CL 97 LAB L501.6100 21.0-32.0 mmol/L Low CO2 16.0 Result Comment: Slight Lipemia, Result may be falsely increased. LAB L501.6200 5-15 High GAP 17 Performed By: #### L500.2500 #### [facility] [address] [place], [address] BUN Collected: 02/16/2018 Status: F Source: [place] 12:20 PM [facility] REPOSITORY Order Comment: CA MISSED TYPE CODE TESTS RESULT OUT OF RANGE REFERENCE UNITS LAB L501.1000 7-18 mg/dL High BUN 27 Performed By: #### L501.1000, L501.1105, L501.2200 #### [facility] [address] [place], [address] SERUM CREATININE AND Collected: 02/16/2018 Status: F Source: [place] GFR 12:20 PM [facility] REPOSITORY Order Comment: CA MISSED TYPE CODE TESTS RESULT OUT OF RANGE REFERENCE UNITS LAB L501.1100 0.70-1.30 mg/dL High 1.59 CREAT,SERUM Result Comment: The validity of the calculated GFR AND GFRAA in patients over 70 years has not been determined. Clinical correlation is essential. LAB L501.1110 >60 mL/min Low EST GFR 48 Result Comment: Non- GFR Calc LAB L501.1115 >60 mL/min Low EST GFR - AA 59 Result Comment: GFR Calc Performed By: #### L501.1000, L501.1105, L501.2200 #### [facility] [address] [place], [address] CALCIUM,TOTAL Collected: 02/16/2018 Status: F Source: [place] 12:20 PM [facility] REPOSITORY Order Comment: CA MISSED TYPE CODE TESTS RESULT OUT OF RANGE REFERENCE UNITS LAB L501.2200 8.5-10.1 mg/dL Normal CA 9.0 Performed By: #### L501.1000, L501.1105, L501.2200 #### [facility] [address] [place], [address] PTHIN Collected: 02/16/2018 Status: F Source: [place] 12:20 PM [facility] REPOSITORY TYPE CODE TESTS RESULT OUT OF RANGE REFERENCE UNITS LAB L509.1000 18.4-80.1 pg/mL Normal PTHIN 41.6 Performed By: #### L509.1000 #### [facility] [address] [place], [address] LIVER PROFILE Collected: 02/02/2018 Status: F Source: [place] 2:35 PM [facility] REPOSITORY TYPE CODE TESTS RESULT OUT OF RANGE REFERENCE UNITS LAB L501.1500 6.4-8.2 g/dL Normal T PROT 7.9 LAB L501.1800 3.2-5.0 g/dL Normal ALB 3.8 LAB L501.1950 2.2-4.2 g/dL Normal GLOB 4.1 LAB L501.4100 15-37 U/L Normal AST 20 LAB L501.4305 45-117 U/L Normal ALK P 101 LAB L501.4405 16-61 U/L Normal ALT 51 LAB L501.4600 0.20-1.00 mg/dL Normal T BILI 0.50 LAB L501.4700 0.00-0.30 mg/dL Normal D BILI 0.11 Performed By: #### L500.3400, L501.1105, L501.6710 #### [facility] [address] [place], [address] SERUM CREATININE AND Collected: 02/02/2018 Status: F Source: [place] GFR 2:35 PM [facility] REPOSITORY TYPE CODE TESTS RESULT OUT OF RANGE REFERENCE UNITS LAB L501.1100 0.70-1.30 mg/dL High 1.50 CREAT,SERUM Result Comment: The validity of the calculated GFR AND GFRAA in patients over 70 years has not been determined. Clinical correlation is essential. LAB L501.1110 >60 mL/min Low EST GFR 52 Result Comment: Non- GFR Calc LAB L501.1115 >60 mL/min Normal EST GFR - AA 63 Result Comment: GFR Calc Performed By: #### L500.3400, L501.1105, L501.6710 #### [facility] [address] [place], [address] CRP Collected: 02/02/2018 Status: F Source: [place] 2:35 PM [facility] REPOSITORY TYPE CODE TESTS RESULT OUT OF RANGE REFERENCE UNITS LAB L501.6710 0.0-3.0 mg/L High 10.90 C-REACTIVE PROT Result Comment: C-Reactive Protein (CRP) provides useful information for the diagnosis, therapy and monitoring of inflammatory processes and associated diseases. For the evaluation of Relative Risk for Cardiovascular Disease, a High Sensitivity CRP (HSCRP) should be ordered. Performed By: #### L500.3400, L501.1105, L501.6710 #### [facility] [address] [place], [address] VITAMIN D,25 HYDROXY Collected: 02/02/2018 Status: F Source: [place] 2:35 PM [facility] REPOSITORY TYPE CODE TESTS RESULT OUT OF REFERENCE UNITS RANGE LAB L506.1000 29.95-100.01 ng/mL Low Vitamin D 19.3 25-OH Result Comment: Vitamin D 25(OH) Status Range Deficiency <20 ng/mL (50nmol/L) Insuffciency 20 - 30 ng/mL (50 - 75 nmol/L) Sufficiency 30 - 100 ng/mL (75 - 250 nmol/L) Toxicity >100 ng/mL (>250 nmol/L) Performed By: #### L506.1000 #### [facility] [address] [place], [address] PTHIN Collected: 02/02/2018 Status: F Source: [place] 2:35 PM [facility] REPOSITORY TYPE CODE TESTS RESULT OUT OF RANGE REFERENCE UNITS LAB L509.1000 18.4-80.1 pg/mL Normal PTHIN 58.7 Performed By: #### L509.1000 #### [facility] [address] [place], [address] ERYTHROCYTE SED RATE Collected: 02/02/2018 Status: F Source: [place] 2:35 PM [facility] REPOSITORY TYPE CODE TESTS RESULT OUT OF RANGE REFERENCE UNITS LAB L102.0000 0-20 mm/hr High SED RATE 34 Performed By: #### L101.9900 #### [facility] [address] [place], [address] CCP IGG ANTIBODIES Collected: 02/02/2018 Status: F Source: [place] 2:35 PM [facility] - [facility] REPOSITORY TYPE CODE TESTS RESULT OUT OF RANGE REFERENCE UNITS LAB L4600.0100 0-19 units Normal ANTI-CCP 5 [id number] Result Comment: Negative <20 Weak positive 20 - 39 Moderate positive 40 - 59 Strong positive >59 Performed at: [facility] [id number] Benefit Authorizer: Santiago Cramer MD, Phone: [phone] Performed By: #### L4600.0100 #### [facility] (refer to report for specific site) refer to report for address and phone number ALLERGIES ALLERGIES DATE TYPE / CODE NAME / CODE REACTION SEVERITY SOURCE 02/23/2018 Drug No Known Unknown [place] [facility] Allergy/4160 Allergies/F00 Hospital [address](SNOMED [id number](RXNOR Repository CT) M) ENCOUNTERS ENCOUNTERS ADMIT/DISCHARGE ACCOUNT ADMITTING ENCOUNTER LOCATION SOURCE NUMBER CLASS 06/09/2018 [id number] Ambulatory [place] [address] [facility] ing:MTLAB Repository 06/08/2018 [id number] Amb[place] [address] [facility] ing:MTLAB Repository 05/08/2018/ [id number] [place] [address] [facility] ing:MTLAB Repository 04/06/2018/ [id number] [place] [address] [facility] ing:MTLAB Repository 03/24/2018 [id number] Ambulatory [place] [address] [facility] ing:OPBD Repository 02/23/2018/ [id number] [place]patient [place] [address] [facility] ing:FX0Xciz: Repository UX173Niw: 1 02/23/2018 [id number] [place] Ambulatory [facility]:B [place] 0 [place] Repository 02/23/2018 [id number] [place] Ambulatory BMSBuilding:B [place] 9 [place] Repository 02/23/2018 [id number] [place] Ambulatory BMSBuilding:B [place] 3 [place] Repository 02/16/2018 [id number] Ambulatory [place] [facility] ing:MTLAB Repository 02/02/2018 [id number] Ambulatory [place] [address] [facility] ing:MTLAB Repository PAYERS PAYERS ENCOUNTER GUARANTOR PAYER SUBSCRIBER SOURCE 06/09/2018 MAXIM [facility] NOT GIVENUNK [place] [id number] Insurance:SELF PAY [facility] [address]Doa: Number: Effective Repository Date:2018-06-09 () 06/08/2018 MAXIM K Primary NOT GIVENUNK [place] [id number] Insurance:SELF PAY [facility] [address]Hva: Number: Effective Repository Date:2018-06-08 () 05/08/2018 MAXIM K Primary NOT GIVENUNK [place] [id number] Insurance:SELF PAY [facility] [place] [id number]: Number: Effective Repository Date:2018-05-07 () 04/06/2018 MAXIM K Primary NOT GIVENUNK [place] [id number] Insurance:SELF PAY [facility] [place] [id number]: Number: Effective Repository Date:2018-04-06 () 03/24/2018 MAXIM K Primary NOT GIVENUNK [place] [id number] Insurance:SELF PAY [facility] [place] [address]Zeh: Number: Effective Repository Date:2018-03-16 () 02/23/2018 MAXIM K Primary NOT G[place]K [place] [id number] Insurance:SELF PAY [facility] [place] [id number]: Number: Effective Repository Date:2018-02-23 () 02/23/2018 Maxim K Primary NOT GIV[place]UNK [place] [id number] Insurance:SELF PAY [facility] [place] [address]Kox: Number: Effective Repository Date:2018-02-23 () 02/23/2018 MAXIM Lenz Primary NOT GIVENUNK [place] [id number] Insurance:SELF PAY [facility] [place] [address]Ewk: Number: Effective Repository Date:2018-02-23 (HP) 02/23/2018 MAXIM K Primary NOT GIVENUNK [place] [id number] Insurance:SELF PAY [facility] [place] [id number]: Number: Effective Repository Date:2018-02-23 () 02/16/2018 MAXIM Lenz Primary NOT GIVENUNK [place] [id number] Insurance:SELF PAY [facility] [place] [id number]: Number: Effective Repository Date:2018-02-16 (HP) 02/02/2018 Maxim [facility] Primary NOT GIVENUNK [place] [id number] Insurance:SELF PAY [facility] [place] [address]Ucm: Number: Effective Repository Date:2018-02-02 ()
== END 2018-06-08 09:00 | disposition home or self-care (01) ==
LOC: MTLAB 08:30
PROVIDERS: Family Provider Family Medicine; PCP Family Medicine
DX: M35.3 Polymyalgia rheumatica (principal)
CPT/HCPCS: 36415; 85652; 86140

== ENCOUNTER → 2019-06-02 10:32 | Outpatient (CLI) | payer SELFPAY ==
[2018-02-23 19:25] VITALS: BMI 29.6
[2019-06-02 12:36] LABS: Erythrocyte Sedimentation Rate 18 mm/hr (0-20)
[2019-06-02 12:38] LABS: Absolute Neutrophil Count 3.8 X10^3/uL (2.0-7.7); Basophil# 0.04 X10^3/uL; Basophil% 0.6 % (0-1); Eosinophil# 0.24 X10^3/uL; Eosinophils% 3.6 % (0-5); Hematocrit 45.7 % (40-54); Hemoglobin 15.4 g/dL (13.0-16.5); Lymphocyte % 31.2 % (19-41); Mean Corp Hgb Conc 33.7 g/dL (32-36); Mean Corpuscular Hgb 26.7 pg (27.0-32.0); Mean Corpuscular Volume 79.2 fL (80-94); Monocyte# 0.51 X10^3/uL; Monocyte% 7.6 % (0-10); NRBC Flagged by Analyzer 0 % (0-5); Neutrophil # 3.82 X10^3/uL (2.7-7.7); Neutrophil % 56.7 % (47-70); Platelet Count 294 K/mm3 (150-450); RBC Distribution Width CV 13.3 % (11.6-14.6); RBC Distribution Width SD 37.7 fl (35.1-43.9); Red Blood Count 5.77 M/mm3 (4.6-6.2); White Blood Count 6.7 K/mm3 (4.4-11.0)
[2019-06-02 12:45] LABS: Vitamin D,25 Hydroxy 35.9 ng/mL (29.95-100.01)
[2019-06-02 12:48] LABS: AST(SGOT) 48 U/L (15-37); Alanine Aminotransfer ALT/SGPT 65 U/L (16-61); Albumin, Serum 4.1 g/dL (3.2-5.0); Alkaline Phosphatase 74 U/L (45-117); Bilirubin, Direct 0.12 mg/dL (0.00-0.30); CRP 8.34 mg/L (0.0-3.0); Creatinine, Serum 0.91 mg/dL (0.70-1.30); EST Glomerular Filtration Rate 92 mL/min (>60); Est Glom Filt Rate - Afr Amer 111 mL/min (>60); Globulin 3.7 g/dL (2.2-4.2); Protein, Total 7.8 g/dL (6.4-8.2)
[2019-06-02 12:51] LABS: Hemoglobin A1c 7.3 % (4.2-6.3)
== END ==
PROVIDERS: Family Provider Family Medicine; PCP Family Medicine; Referring Provider Internal Medicine Rheumatology; Visit Provider Internal Medicine Rheumatology
DX: M35.3 Polymyalgia rheumatica (principal); R94.4 Abnormal results of kidney function studies; E55.9 Vitamin D deficiency, unspecified; E09.9 Drug or chemical induced diabetes mellitus without complications; Z79.899 Other long term (current) drug therapy; R79.82 Elevated C-reactive protein (CRP)
CPT/HCPCS: 36415; 80076; 82306; 82565; 83036; 85025; 85652; 86140

== ENCOUNTER → 2021-12-21 | Outpatient (CLI) | payer SELFPAY ==
[2021-12-21 10:18] LABS: Estradiol 26.8 pg/mL
[2021-12-25 13:08] LABS: Testosterone, Free 2.51 ng/dL (5.00-21.00)
[2021-12-25 14:58] LABS: Testosterone, % Free 2.64 % (1.50-4.20); Testosterone, Total 95 ng/dL (264-916)
== END | disposition home or self-care (01) ==
PROVIDERS: PCP Family Medicine
DX: E29.1 Testicular hypofunction (principal)
CPT/HCPCS: 36415; 82670; 84402; 84403

== ENCOUNTER → 2023-11-17 | Outpatient (CLI) | payer SELFPAY | END | disposition home or self-care (01) | PROVIDERS: PCP Family Medicine; Referring Provider Physician Assistant; Visit Provider Physician Assistant | DX: J02.9 Acute pharyngitis, unspecified (principal) | CPT/HCPCS: 87070 ==